=== PATIENT | female | born 1935 | race Caucasian/White ===

== ENCOUNTER 2017-09-08 07:47 | Day surgery (SDC) | payer MEDICARE, MEDICAID ==
[~2017-09-08] VITALS: Ht 167.6 cm; Wt 72.6 kg
[~2017-09-08 07:47] MED LIST: ACET325T49 PO; ASPI-983 PO; BISA10SU58 RC; BUPR150T14 PO; CARV3.122 PO; CHOL20003 PO; CLOP75TA28 PO; DIVA125C10 PO; DOCU100C37 PO; FURO20TA4 PO; GABA-488 PO; INSU100I29 SQ; LACT-157 PO; MENT71OI TP; OMEG-160 PO; POLY119P5 PO; POTA20TA8 PO; RISP0.253 PO; RISP0.5T3 PO; RIVA1PAT13 TD; SIMV40TA4 PO; TRAM50TA2 PO
[2017-09-08] MEDS ORDERED: LIDOCAINE 1% INJ 50 ML (XYLOCAINE) VIAL ONE (07:53)
[2017-09-08] MEDS ORDERED: NS IV 1000 ML 1,000 ML ONE (07:53)
[2017-09-08] MEDS ORDERED: HEParin (CATH LAB) 0 ML IV ONE (07:53)
[2017-09-08] MEDS ORDERED: NS IV 1000 ML 1,000 ML IV SCH (07:56)
[2017-09-08 08:07] VITALS: BP 134/80
[2017-09-08 08:23] LABS: HEMOGLOBIN 14.8 G/DL (11.5-16.0); MEAN PLATELET VOLUME 11.3 FL (7.4-10.4); RED BLOOD COUNT 4.92 10^6/uL (4.35-5.85); RED CELL DISTRIBUTION WIDTH 14.5 % (10.0-14.5); WHITE BLOOD COUNT 8.6 10^3/uL (4.3-11.0)
[2017-09-08 08:33] LABS: INR 1.1 (0.8-1.4); PROTHROMBIN TIME PATIENT 14.2 SEC (12.2-14.7)
--- NOTE | 2017-09-08 08:42 | Cardiac Procedure Note-CS/ASA ---
Pre-Procedure Note Pre-Op Procedure Note H&P Reviewed The H&P was reviewed, patient examined and no changes noted. Date H&P Reviewed: Sep 08, 2017 Time H&P Reviewed: 08:41 Conscious Sedation Pre-Proced Time Reviewed: 08:41 ASA Class: 3 Airway Mallampati Classification: (qagan tayagungin appropriate class) I. II. III, IV Lungs Heart ASA score ASA 1: a normal healthy patient ASA 2: a patient with a mild systemic disease (mid diabetes, controlled hypertension, obesity x ASA 3: a patient with a severe systemic disease that limits activity (angina , COPD, prior Myocardial infarction) ASA 4: a patient with an incapacitating disease that is a constant threat to life (CHF, renal failure) ASA 5: a moribund patient not expected to survive 24 hrs. (ruptured aneurysm) ASA 6: a declared brain patient whose organs are being harvested. For emergent operations, add the letter E after the classification Grade 3 Sedation Plan: Analgesia, Amnesia, Plan communicated to team members, Discussed options with patient/fam, Discussed risks with patient/fam Note The patient is an appropriate candidate to undergo the planned procedure, sedation, and anesthesia. The patient immediately re-assessed prior to indication. SUDHIR MARTINEZ MD Sep 08, 2017 08:41
[2017-09-08 08:44] LABS: ALANINE AMINOTRANSFERASE 27 U/L (0-55); ALBUMIN 3.3 GM/DL (3.2-4.5); ALKALINE PHOSPHATASE 70 U/L (40-136); BILIRUBIN,TOTAL 0.8 MG/DL (0.1-1.0); BUN/CREATININE RATIO 36; CALCIUM 9.7 MG/DL (8.5-10.1); CARBON DIOXIDE 26 MMOL/L (21-32); CHLORIDE 107 MMOL/L (98-107); CHOLESTEROL 193 MG/DL (< 200); CREATININE SERUM 0.88 MG/DL (0.60-1.30); GFR ESTIMATED > 60; GLUCOSE 145 MG/DL (70-105); HDL CHOLESTEROL 31 MG/DL (40-60); POTASSIUM 4.2 MMOL/L (3.6-5.0); SODIUM 145 MMOL/L (135-145); TRIGLYCERIDES 131 MG/DL (<150); VLDL CHOLESTEROL 26 MG/DL (5-40)
[2017-09-08] MEDS ORDERED: GENTAMICIN IR ONE ×2 (08:45)
[2017-09-08] MEDS ORDERED: ceFAZolin 1,000 MG (ANCEF) VIAL IV ONE (08:45)
[2017-09-08] MEDS ORDERED: SODIUM CHLORIDE IR ONE ×2 (08:45)
[2017-09-08] MEDS ORDERED: INSU100V6 SQ (08:55)
[2017-09-08] MEDS ORDERED: ALPR0.25 PO (08:55)
[2017-09-08] MEDS ORDERED: MENT71OI TP (08:55)
[2017-09-08] MEDS ORDERED: LORA0.5T PO ×2 (08:55→09:05)
[2017-09-08] MEDS ORDERED: POTA20PA4 PO (08:55)
[2017-09-08] MEDS ORDERED: CETI10TA20 PO (08:55)
--- NOTE | 2017-09-08 08:58 | Diagnostic Imaging Report ---
INDICATION: Pacemaker malfunction Frontal chest obtained at 0839 a.m. and compared with 01/02/16. Heart is mildly enlarged. Pacemaker device is unchanged compared to the prior study with right atrial and right ventricular leads. There is some linear atelectatic change in the right base. There is ill-defined density in the right midlung which may represent infiltrate versus nodule. Followup studies are recommended. There is no pneumothorax or gross pleural fluid. IMPRESSION: Mild cardiomegaly with unchanged pacemaker device. Linear atelectatic change in the right base. Ill-defined parenchymal density in right midlung, which may represent infiltrate versus nodule, followup chest x-rays are recommended with followup CT if this does not resolve. Dictated by: Dictated on workstation # [id number]
[2017-09-08] MEDS ORDERED: [UNRECOGNIZED DRUG - OTHER] IR ONE ×2 (09:00)
[2017-09-08] MEDS ORDERED: FURO20TA4 PO (09:05)
--- OUTSIDE RECORDS SUMMARY | 2017-09-09 18:07 | XMS REPORT | Summary of Care ---
Author Author Avinash Diaz M.D. Unknown Address [address] [place], [place] [id number] Phone Unavailable Care Team Providers Care Accounts Payable Assistant Name Role Phone Mary Tilley M.D. Unavailable Mary Tilley PP Unavailable Unavailable Unavailable Functional Status Functional Status Health Issues* Name Dates Details Functional status health issues are not documented Status: Cognitive Status Health Issues* Name Dates Details Cognitive status health issues are not documented Status: Problems Name Dates Details Sleeping Too Much (Hypersomnia) Status: Active Insomnia (780.52, G47.00) Status: Active Urinary tract infection (599.0, N39.0) Status: Active Fatigue (780.79, R53.83) Status: Active Visit for screening mammogram (V76.12, Z12.31) Status: Active Dementia (294.20, F03.90) Status: Active Cough (786.2, R05) Status: Active Weight loss (783.21, R63.4) Status: Active Abdominal pain (789.00, R10.9) Status: Active Erosive gastritis (535.40, K29.00) Status: Active Duodenal ulcer (532.90, K26.9) Status: Active Duodenitis (535.60, K29.80) Status: Active Esophageal stenosis (530.3, K22.2) Status: Active Helicobacter pylori gastritis (chronic gastritis) (535.10, B96.81) Status: Active Syncope (780.2, R55) Status: Active Chronic obstructive pulmonary disease (496, J44.9) Status: Active Hypotension (458.9, I95.9) Status: Active Blister (919.2) Status: Active Osteoporosis (733.00, M81.0) Status: Active Obstructive sleep apnea (327.23, G47.33) Status: Active Hyperparathyroidism (252.00, E21.3) Status: Active CKD (chronic kidney disease), stage III (585.3, N18.3) Status: Active Edema (782.3, R60.9) Status: Active Hypokalemia (276.8, E87.6) Status: Active Type 2 diabetes mellitus (250.00, E11.9) Status: Active Dyslipidemia (272.4, E78.5) Status: Active Chronic kidney disease, stage III (moderate) (585.3, N18.3) Status: Active Behavior problems (V40.9, F69) Status: Active Depression (311, F32.9) Status: Active Dementia of the Alzheimer's type (331.0, G30.9) Status: Active Peripheral arterial disease (443.9, I73.9) Status: Active Sick sinus syndrome (427.81, I49.5) Status: Active Hypertension (401.9, I10) Status: Active Medications Name Dates Details Clopidogrel Bisulfate 75 MG Oral Tablet Take 1 tablet daily Quantity: 90 TilleyMary harmon M.D.* Started 18-Jan-2008 ActiveLantus SoloStar 100 UNIT/ML Subcutaneous Solution Pen-injector INJECT 8 UNITS UNDER THE SKIN AT BEDTIME OR DIRECTED FOR DIABETES (NEW DOSING 04-15-15) * Quantity: 1 Refills: 0 Mary Tilley M.D.* Started 18-Jan-2008 ActiveKlor-Con M20 20 MEQ Oral Tablet Extended Release Take 1 tablet twice a day * Quantity: 180 Refills: 2 Mary Tilley M.D.* Started 16-Oct-2009 ActiveTorsemide 20 MG Oral Tablet take 2 tablets in the AM * Refills: 3 Mary Tilley M.D.* Started 30-Oct-2009 Lsojxq20 Tablet Bottle Adult Aspirin EC Low Strength 81 MG Oral Tablet Delayed Release TAKE 1 TABLET DAILY. * Refills: 0 ActiveExelon 13.3 MG/24HR Transdermal Patch [address] 1 PATCH EXTERNALLY DAILY * Quantity: 3 Refills: 2 TilleyMary M.D.* Started 13-May-2009 ActiveSimvastatin 40 MG Oral Tablet Take 1 tablet at bedtime * Quantity: 90 Refills: 3 TilleyMary M.D.* Started 27-May-2009 ActiveGabapentin 300 MG Oral Capsule TAKE 1 CAPSULE EVERY NIGHT AT BEDTIME * Quantity: 90 Refills: 2 TilleyMary M.D.* Started 03-Dec-2009 ActiveVitamin D3 2000 UNIT Oral Capsule TAKE 1 CAPSULE BY MOUTH DAILY * Quantity: 90 Refills: 3 * Started 09-Sep-2010 ActiveFish Oil 1000 MG Oral Capsule TAKE 1 CAPSULE DAILY. * Refills: 0 TilleyMary M.D.* Started 23-Oct-2011 ActiveReclast 5 MG/100ML Intravenous Solution Infuse 5mg/1000ml yearlyDx: Osteoporosis 733 * Quantity: 100 Refills: 5 TilleyMary M.D.* Started 10-Nov-2011 ActiveEscitalopram Oxalate 10 MG Oral Tablet Take 1 tablet daily * Quantity: 90 Refills: 3 TilleyMary M.D.* Started 25-Sep-2014 ActiveRisperiDONE 1 MG Oral Tablet TAKE 1 TABLET AT BEDTIME. 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 History of Coronary artery stenosis (414.00, I25.10) Status: Resolved History of deafness (V12.49, Z86.69) Status: Resolved History of dizziness (V13.89, Z87.898) Status: Resolved History of Eczema (692.9, L30.9) Status: Resolved History of Foot pain (729.5, M79.673) Status: Resolved History of fracture of ankle (V15.51, Z87.81) Status: Resolved 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, 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) Status: Resolved History of Peptic Ulcer (V12.71) Status: Resolved History of peripheral vascular disease (V12.59, Z86.79) Status: Resolved History of Renal artery stenosis (440.1, I70.1) Status: Resolved History of Restless legs syndrome (333.94, G25.81) Status: Resolved History of urinary frequency (V13.09, Z87.898) Status: Resolved History of Vision problems (V41.0, H54.7) Status: Resolved Procedures Procedure Dates Details History of Pacemaker Placement History of Carotid Thromboendarterectomy History of Cataract Surgery History of Pacemaker Placement History of Ankle Surgery History of Kidney Surgery Procedures not documented Immunization Name Dates Details Pneumo (Pneumovax) Administered on:26-Nov-2004 Td Administered on:02-Dec-2005 Influenza Administered on:09-May-2009 Influenza A (H1N1) Monoval PF Intramuscular Suspension Administered on:13-Aug-2009 Pneumo (Pneumovax) Administered on:08-Jul-2010 Fluzone Intramuscular Injectable Administered on:08-Jul-2010 Influenza Lot #: [id number] Administered on:05-Jun-2011 Zoster (Zostavax) Administered on:12-Sep-2012 Influenza Lot #: [id number] Administered on:27-Jun-2013 Prevnar 13 Intramuscular Suspension Lot #: [id number] Administered on:27-Dec-2014 Family History Unknown Family Member* Name Dates Details Family history of Dementia Comments: Family History Status: Active Family history of Gastric Cancer (V16.0) Comments: Family History Status: Active Family history of Reported Family History Of Heart Disease Comments: Family History Status: Active Family history of Type 2 Diabetes Mellitus Comments: Family History Status: Active Family history of Chronic Obstructive Pulmonary Disease Comments: Family History Status: Active Family history of Breast Cancer (V16.3) Comments: Family History Status: Active Social History Name Dates Details Weight loss (783.21, R63.4) Smoking Status* Current every day smoker Vital Signs Date Test Result Details No Known Vitals to report Results Date Description Value Details Results not documented Plan of Care Planned Observations* Name Dates Details Planned Goals not documented Goal Planned Encounters* Appointment; Provider: Jose Antonio Barnes On 14-Nov-2015 10:45 * Appointment; Provider: Avinash Diaz On 08-Jul-2015 14:30 * Appointment; Provider: Brayan Aragon On 17-Apr-2010 13:00 * Appointment; Provider: Brayan Aragon On 16-Jan-2010 11:40 * Appointment; Provider: Brayan Aragon On 22-Oct-2009 08:00 * Appointment; Provider: Bryaan Aragon On 23-Jul-2009 08:30 * Appointment; Provider: Brayan Aragon On 19-Apr-2009 08:00 * Appointment; Provider: Kevin Avalos On 13:30 Instructions * Instructions not documented Encounters Appointment; Jose Antonio Barnes Encounter Diagnosis: Problem not documented On 16-May-2015 10:30 Appointment; Mary Tilley Encounter Diagnosis: Problem not documented On 15-Apr-2015 13:00 Appointment; Avinash Diaz Encounter Diagnosis: Problem not documented On 02-Apr-2015 14:30 Appointment; Fluckarlos Avinash Encounter Diagnosis: Problem not documented On 15:30 Appointment; Avinash Diaz Encounter Diagnosis: Problem not documented On 01-Jan-2015 14:00 Appointment; Mary Tilley Encounter Diagnosis: Problem not documented On 27-Dec-2014 11:00 Appointment; Avinash Diaz Encounter Diagnosis: Problem not documented On 04-Dec-2014 12:30 Appointment; Mary Tilley Encounter Diagnosis: Problem not documented On 27-Nov-2014 14:45 Appointment; Mary Tilley Encounter Diagnosis: Problem not documented On 13-Nov-2014 15:15 Appointment; Jose Antonio Barnes Encounter Diagnosis: Problem not documented On 08-Nov-2014 10:00 Appointment; Mary Tilley Encounter Diagnosis: Problem not documented On 26-Oct-2014 14:00 Appointment; Jose Antonio Barnes Encounter Diagnosis: Problem not documented On 28-Sep-2014 14:15 Appointment; Mary Tilley Encounter Diagnosis: Problem not documented On 25-Sep-2014 14:00 Appointment; Johnna Watters Encounter Diagnosis: Problem not documented On 18-May-2014 11:30 Appointment; Jose Antonio Barnes Encounter Diagnosis: Problem not documented On 04-May-2014 11:15 Appointment; Jose Antonio Barnes Encounter Diagnosis: Problem not documented On 13-Apr-2014 13:00 Appointment; Bon Ball Encounter Diagnosis: Problem not documented On 06-Apr-2014 15:00 Appointment; Toño Luz Encounter Diagnosis: Problem not documented On 06-Apr-2014 10:00 Appointment; Mary Tilley Encounter Diagnosis: Problem not documented On 15:00 Appointment; Johnna Watters Encounter Diagnosis: Problem not documented On 21-Dec-2013 11:45 Appointment; Mary Tilley Encounter Diagnosis: Problem not documented On 01-Dec-2013 11:00 Appointment; Brodie Melendez Encounter Diagnosis: Problem not documented On 28-Aug-2013 15:45 Appointment; Johnna Watters Encounter Diagnosis: Problem not documented On 04-Aug-2013 15:00
--- OUTSIDE RECORDS SUMMARY | 2017-09-09 18:07 | XMS REPORT ---
Author Author Johnna Watters Organization Unknown Address [address], [place] [id number] Phone Care Team Providers Care Housing Project Manager Name Role Phone Jarek Hernandez PP Unavailable Unavailable Reason for Referral No Reason for Referral was given. History of Present Illness No HPI available. Problems * Paraparesis (Lower Extremities) (344.1); (Active) * Edema (782.3); (Active) * Sleeping Too Much (Hypersomnia) (Active) * Fatigue (780.79); (Active) * Insomnia (780.52); (Active) * Dyslipidemia (272.4); (Active) * Osteoporosis (733.00); (Active) * Normal Routine History And Physical Senior Citizen (65-80) (V70.0); ( Active) * Urinary Tract Infection (599.0); (Active) * Peripheral Arterial Disease (443.9); (Active) * Hypotension (458.9); (Active) * Dementia Of Alzheimer's Type (294.10); (Active) * Hypertension (401.9); (Active) * Sick Sinus Syndrome (427.81); (Active) * Type 2 Diabetes Mellitus (250.00); (Active) * Obstructive Sleep Apnea (327.23); (Active) * Dementia (294.20); (Active) * Chronic Obstructive Pulmonary Disease (496); (Active) * Chronic Kidney Disease, Stage 3 (585.3); (Active) Medication * Clopidogrel Bisulfate 75 MG Oral Tablet; take one tablet by mouth every day; Start Date: 01/18/2008 (Active) * Lantus SoloStar 100 UNIT/ML Subcutaneous Solution; FF - [id number] UNITS SUBCUTANEOUSLY AT BEDTIME.; Start Date: 01/18/2008 (Active) * Klor-Con M20 20 MEQ Oral Tablet Extended Release; Take 1 tablet twice daily; Start Date: 10/16/2009 (Active) * Torsemide 20 MG Oral Tablet; 1QD - TAKE ONE TABLET BY MOUTH EVERY DAY; Start Date: 10/30/2009 (Active) * Adult Aspirin EC Low Strength 81 MG Oral Tablet Delayed Release; TAKE 1 TABLET DAILY. (Active) * Sertraline HCl 50 MG Oral Tablet; Take one tab daily; Start Date: 10/30/2009 ( Active) * Exelon 13.3 MG/24HR Transdermal Patch 24 Hour; PLACE 1 PATCH Daily; Start Date : 05/13/2009 (Active) * Simvastatin 40 MG Oral Tablet; TAKE ONE TABLET BY MOUTH AT BEDTIME; Start Date : 05/27/2009 (Active) * Syringes; insulin syringes 31 gauge8 units with meals Dx250.; Start Date: ; End Date: (Active) * Gabapentin 300 MG Oral Capsule; TAKE 1 CAPSULE Bedtime; Start Date: 2009 (Active) * Vitamin D3 2000 UNIT Oral Capsule; TAKE 2 CAPSULE BY MOUTH DAILY; Start Date: 09/09/2010 (Active) * Mixture; 50\50 Eucerin\HC 1%-Apply TID 50 gm; Start Date: 08/04/2011; End Date: (Active) * Halobetasol Propionate 0.05 % External Cream; APPLY THIN LAYER TO HANDS TWICE DAILY UNTIL CLEAR AND THEN NEEDED; Start Date: 09/07/2011; End Date: 1899 (Active) * Fish Oil 1000 MG Oral Capsule; TAKE 1 CAPSULE DAILY.; Start Date: 10/23/2011 ( Active) * Reclast 5 MG/100ML Intravenous Solution; Infuse 5mg/1000ml yearlyDx: Osteoporosis 733; Start Date: 11/10/2011 (Active) * Nystatin-Triamcinolone 135282-6.1 UNIT/GM-% External Cream; APPLY SPARINGLY TO AFFECTED AREA(S) 3 TIMES A DAY; Start Date: 02/12/2012; End Date: (Active) * Budesonide 0.5 MG/2ML Inhalation Suspension; USE 1 UNIT DOSE VIA NEBULIZER TWO TIMES A DAY; Start Date: 11/25/2012; End Date: (Active) * Hydrocodone-Acetaminophen 5-500 MG Oral Tablet; TAKE 1 TABLET EVERY 6 HOURS NEEDED FOR PAIN.; Start Date: 12/19/2012 (Active) * Losartan Potassium 50 MG Oral Tablet; Take one tablet by mouth daily; Start Date: 02/13/2013 (Active) * Losartan Potassium 50 MG Oral Tablet; Take one tablet by mouth daily; Start Date: 02/13/2013; End Date: (Active) * Namenda Titration Sukhjinder 5 (28)-10 (21) MG Oral Tablet; TAKE DIRECTED.; Start Date: 02/13/2013; End Date: (Active) * Namenda XR 28 MG Oral Capsule Extended Release 24 Hour; TAKE 1 CAPSULE Daily; Start Date: 02/13/2013; End Date: (Active) Allergies and Adverse Reactions * Neosporin OINT (Active) * Antihistamines, Diphenhydramine-type (Active) Past Medical History * History of Peptic Ulcer (V12.71); (Resolved) * History of Allergic Rhinitis (477.9); (Resolved) * History of Restless Legs Syndrome (333.94); (Resolved) * 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); (Resolved) * History of Coronary Artery Stenosis (414.00); (Resolved) * History of Prior Myocardial Infarction Of The Inferior Wall (412); ( Resolved) * History of Carotid Artery Stenosis (433.10); (Resolved) * History of Peripheral Vascular Disease (443.9); (Resolved) * History of Renal Artery Stenosis (440.1); (Resolved) * History of Aneurysm Of The Abdominal Aorta (441.4); (Resolved) * History of Fracture Of The Ankle (824.8); (Resolved) * History of Pacemaker Placement (V53.31); (Resolved) * History of Fainting (Syncope) (780.2); (Resolved) * History of Urinary Frequency (788.41); (Resolved) * History of Vision Problems (V41.0); (Resolved) * History of Eczema (692.9); (Resolved) * History of Dizziness (780.4); (Resolved) * History of Hearing Loss (389.9); (Resolved) * History of Foot Pain (Soft Tissue) (729.5); (Resolved) Procedures Procedure Procedure Date Date Completed Status Carotid Thromboendarterectomy - - Active Cataract Surgery - - Active Pacemaker Placement - - Active Ankle Surgery - - Active Kidney Surgery - - Active Immunization * Td - Administered on: 12/02/2005 * Pneumo (Pneumovax) - Administered on: 11/26/2004 * Influenza - Administered on: 05/09/2009 * Influenza A (H1N1) Monoval PF Intramuscular Suspension - Administered on: * Pneumo (Pneumovax) - Administered on: 07/08/2010 * Fluzone Intramuscular Injectable - Administered on: 07/08/2010 * Influenza (Lot #: [id number]) - Administered on: 06/05/2011 * Zoster (Zostavax); #Zostavax 80097 UNT/0 - Administered on: 09/12/2012 Family History * Family history of Dementia (Active) * Family history of Gastric Cancer (V16.0); (Active) * Family history of Reported Family History Of Heart Disease (Active) * Family history of Type 2 Diabetes Mellitus (Active) * Family history of Chronic Obstructive Pulmonary Disease (Active) * Family history of Breast Cancer (V16.3); (Active) Social History * Retired From Work (Active) * Racial Background (___ %) (Active) * No History of Alcohol Use (Active) * No History of Drug Use (Active) * Stopped Drinking Alcohol (Active) * History of Current Smoker Comments: 1/2 ppd (305.1); (Active) * Current Every Day Smoker (305.1); (Active) * Marital History - (Active) * Caffeine Use (Active) * Hoahaoism Affiliation [employer] ([employer]) (Active) Treatment Plan * SPECIMEN STATUS: 6732 12/22/2007 Routine * Urine Culture PRN 8000 04/20/2008 Routine * Urinalysis, Reflex to Microscopic or Culture PRN 8005 04/20/2008 Routine * XM CAD (SCREENING) 07/05/2008 Routine * XC OPTIRAY 320 125ML 09/13/2008 Routine * HOLD TUBE 9421 01/28/2009 Routine * XM CAD (SCREENING) 08/09/2009 Routine * HOLD TUBE 9421 08/06/2010 Routine * Urine Culture PRN 8000 10/23/2011 Routine * XM CAD (SCREENING) 11/06/2011 Routine Advance Directives * No Advance Directives available. Encounters * Appointment 05/22/2013 * RTNPT , Provider: Jarek Hernandez, Status: Pen , Time: 2:15 PM 2012 * SLEPRTN , Provider: Zhane Orozco, Status: Pen , Time: 2:15 PM 2012 * [facility] , Provider: Duong Oropeza, Status: Pen , Time: 3:00 PM 01/2013 * RTNPT , Provider: Al Calloway, Status: Pen , Time: 1:15 PM 2012
--- OUTSIDE RECORDS SUMMARY | 2017-09-09 18:08 | XMS REPORT | Summary of Care ---
Author Author Avinash Diaz M.D. Unknown Address [address] [place], [place] [id number] Phone Unavailable Care Team Providers Care Lactation Nurse Name Role Phone Mary Tilley M.D. 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, E21.3) Status: Active Edema (782.3, R60.9) Status: Active [...] Status: Active Hypertension (401.9, I10) Status: Active CKD (chronic kidney disease), stage III (585.3, N18.3) Status: Active Generalized edema (782.3, R60.1) Status: Active Essential hypertension (401.9, I10) Status: Active Medications Name Dates Details Clopidogrel Bisulfate 75 MG Oral Tablet Take 1 tablet daily Quantity: 90 Mary Tilley M.D.* Started 18-Jan-2008 ActiveLantus SoloStar 100 UNIT/ML [...] Refills: 3 Mary Tilley M.D.* Started 30-Oct-2009 [id number] Tablet Bottle Adult Aspirin EC Low Strength 81 MG Oral Tablet Delayed Release TAKE 1 TABLET DAILY. * Refills: 0 ActiveExelon 13.3 MG/24HR Transdermal Patch [address] 1 PATCH EXTERNALLY DAILY * Quantity: 3 Refills: 2 Mary Tilley M.D.* Started 13-May-2009 ActiveSimvastatin 40 MG Oral [...] Intramuscular Injectable Administered on:08-Jul-2010 Influenza Lot #: [id number] Administered on:05-Jun-2011 Zoster (Zostavax) Administered on:12-Sep-2012 Influenza Lot #: [id number] Administered on:27-Jun-2013 Prevnar 13 Intramuscular Suspension Lot #: [id number] Administered on:27-Dec-2014 Family History Unknown Family Member* [...] smoker Vital Signs Date Test Result Details 08-Jul-2015 14:30 BP Systolic 120 mm[Hg] Status: BP Diastolic 69 mm[Hg] Status: Heart Rate 66 /min Status: Results Date Description Value Details 08-Jul-2015 14:08 CBC w/ Auto Diff 7150 WBC 7.5 K/uL (Better) Range: 4.5-11.0 RBC 4.72 mil/uL (Better) Range: 3.60-5.00 HGB 14.0 g/dL (Better) Range: 12.0-16.0 HCT 43.9 % (Better) Range: 36.0-48.0 MCV 93.0 fL (Better) Range: 80.0-99.0 MCH 29.7 pg (Better) Range: 27.3-32.5 MCHC 32.0 % (Better) Range: 32.0-36.0 RDW 13.1 % (Better) Range: 11.6-14.8 PLATELETS 149 K/uL (Below low threshold) Range: 150-400 MPV 8.4 fL (Better) Range: 6.0-11.0 %NEUTRO 65.6 % (Better) Range: 37.0-80.0 %LYMPHS 24.2 % (Better) Range: 13.0-50.0 %MONO 4.9 % (Better) Range: 0.0-12.0 %EOS 2.2 % (Better) Range: 0.0-7.0 %BASO 0.5 % (Better) Range: 0.0-2.5 %VIRGIE 2.8 % (Better) Range: 0.0-5.0 NEUTRO 4.9 K/uL (Better) Range: 2.0-6.9 LYMPHS 1.8 K/uL (Better) Range: 0.6-3.4 MONOS 0.4 K/uL (Better) Range: 0.0-0.9 EOS 0.2 K/uL (Better) Range: 0.0-0.7 BASO 0.0 K/uL (Better) Range: 0.0-0.2 14:22 MAGNESIUM 1260 MAGNESIUM 2.0 mg/dL (Better) Range: 1.8-2.4 14:23 RENAL PROFILE 1240 SODIUM 143 mmol/L (Better) Range: 133-144 POTASSIUM 4.2 mmol/L (Better) Range: 3.5-5.1 CHLORIDE 103 mmol/L (Better) Range: 98-110 CARBON DIOXIDE 29.4 mmol/L (Better) Range: 23.0-33.0 ANION GAP 11 mmol/L (Better) Range: 6-16 BUN 21 mg/dL (Above high threshold) Range: 7-18 CREATININE, SERUM 1.12 mg/dL (Above high threshold) Range: 0.55-1.02 Comments: Please note new reference ranges effective 2015.----- EST GFR, 57 ml/min (Below low threshold) Range: >60 EST GFR, NON-AFR KENYAN 47 ml/min (Below low threshold) Range: >60 Comments: EST GFR is reported in ml/min per 1.73 m2 of body surface area. For -Faroese, please multiple result by 1.2.----- BUN:CREATININE RATIO 19 (Better) GLUCOSE 75 mg/dL (Better) Range: 70-100 ALBUMIN 3.4 g/dL (Better) Range: 3.4-5.0 PHOSPHORUS 3.0 mg/dL (Better) Range: 2.6-4.7 Comments: Please note new reference ranges effective 2015.----- CALCIUM 9.5 mg/dL (Better) Range: 8.5-10.1 Plan of Care Planned Observations* Name Dates Details Planned Goals not documented Goal Planned Encounters* Appointment; Provider: Jose Antonio Barnes On 14-Nov-2015 10:45 * Appointment; Provider: Avinash Diaz On 07-Oct-2015 14:15 * Appointment; Provider: Brayan Aragon On 17-Apr-2010 13:00 * Appointment; Provider: Brayan Aragon On 16-Jan-2010 11:40 * Appointment; Provider: Brayan Aragon On 22-Oct-2009 08:00 * Appointment; Provider: Brayan Aragon On 23-Jul-2009 08:30 * Appointment; Provider: Brayan Aragon On 19-Apr-2009 08:00 * Appointment; Provider: Kevin Avalos On 13:30 Instructions * Instructions not documented Encounters Appointment; Avinash Diaz Encounter Diagnosis: Problem not documented On 08-Jul-2015 14:30 Appointment; Jose Antonio Barnes Encounter Diagnosis: Problem not documented On 16-May-2015 10:30 Appointment; Mary Tilley Encounter Diagnosis: Problem not documented On 15-Apr-2015 13:00 Appointment; Avinash Diaz Encounter Diagnosis: Problem not documented On 02-Apr-2015 14:30 Appointment; Avinash Diaz Encounter Diagnosis: Problem not documented On 15:30 [...] Problem not documented On 06-Apr-2014 15:00 Appointment; Luz Lundberg Encounter Diagnosis: Problem not documented On 06-Apr-2014 [...]
--- OUTSIDE RECORDS SUMMARY | 2017-09-09 18:08 | XMS REPORT | Summary of Care ---
Author Author Mary Tilley M.D. Unknown Address [address], [place] [id number] Phone Unavailable Care Team Providers Care Insurance Agency Sales Manager Name Role Phone Mary Tilley M.D. Unavailable Unavailable Mary Tilley PP Unavailable Unavailable Unavailable [...] Status: Active Fatigue (780.79, R53.83) Status: Active Edema (782.3, R60.9) Status: Active Visit for screening mammogram (V76.12, [...] obstructive pulmonary disease (496, J44.9) Status: Active Depression (311, F32.9) Status: Active Hypotension (458.9, I95.9) Status: Active Blister (919.2) Status: Active Sick sinus syndrome (427.81, I49.5) Status: Active Type 2 diabetes mellitus (250.00, E11.9) Status: Active Hypertension (401.9, I10) Status: Active Dyslipidemia (272.4, E78.5) Status: Active Dementia of the Alzheimer's type (331.0, G30.9) Status: Active Chronic kidney disease, stage III (moderate) (585.3, N18.3) Status: Active Behavior problems (V40.9, F69) Status: Active Osteoporosis (733.00, M81.0) Status: Active Obstructive sleep apnea (327.23, G47.33) Status: Active Peripheral arterial disease (443.9, I73.9) Status: Active Medications Name Dates Details Clopidogrel Bisulfate 75 MG Oral Tablet take one tablet by mouth every day Quantity: 90 TilleyMary M.D.* Started 18-Jan-2008 ActiveLantus SoloStar 100 UNIT/ML Subcutaneous Solution Pen-injector Inject 12 U Subcutaneously at bedtime or as directed for diabetes * Quantity: 1 Refills: 3 TilleyMary M.D.* Started 18-Jan-2008 Active3 ML Pen (5 Pens) Torsemide 20 MG Oral Tablet 1QD - TAKE ONE TABLET BY MOUTH EVERY DAY * Quantity: 90 Refills: 3 TilleyMary M.D.* Started 30-Oct-2009 ActiveAdult Aspirin EC Low Strength 81 MG Oral Tablet Delayed Release TAKE 1 TABLET DAILY. * Refills: 0 ActiveExelon 13.3 MG/24HR Transdermal Patch [address] 1 PATCH Daily * Quantity: 3 Refills: 3 TilleyMary harmon M.D.* Started 13-May-2009 ActiveSimvastatin 40 MG Oral Tablet TAKE ONE TABLET BY MOUTH AT BEDTIME * Quantity: 90 Refills: 3 TilleyMary M.D.* Started 27-May-2009 ActiveGabapentin 300 MG Oral Capsule TAKE 1 CAPSULE BY MOUTH EVERY NIGHT AT BEDTIME * Quantity: 90 Refills: 3 TilleyMary M.D.* Started 03-Dec-2009 ActiveVitamin D3 2000 UNIT Oral Capsule TAKE 1 CAPSULE BY MOUTH DAILY * Quantity: 90 Refills: 3 * Started 09-Sep-2010 ActiveFish Oil 1000 MG Oral Capsule TAKE 1 CAPSULE DAILY. * Refills: 0 TilleyMary M.D.* Started 23-Oct-2011 ActiveReclast 5 MG/100ML Intravenous Solution Infuse 5mg/1000ml yearlyDx: Osteoporosis 733 * Quantity: 1 Refills: 5 TilleyMary M.D.* Started 10-Nov-2011 [id number] ML Plas Cont Potassium Chloride Krista ER 20 MEQ Oral Tablet Extended Release Take 1 tablet twice daily * Quantity: 180 Refills: 3 TilleyMary M.D.* Started 21-Nov-2013 ActiveEscitalopram Oxalate 10 MG Oral Tablet Take 1 tablet daily * Quantity: 90 Refills: 0 TilleyMary M.D.* Started 25-Sep-2014 ActiveRisperiDONE 1 MG [...] Status: Resolved History of urinary frequency (V13.09, Z87.448) Status: Resolved History of Vision problems (V41.0, H54.2) Status: Resolved Procedures Procedure Dates Details History of Pacemaker Placement History of Carotid Thromboendarterectomy History of Cataract Surgery History of Pacemaker Placement History of Ankle Surgery History of Kidney Surgery RENAL PROFILE 1240 Ordered:04-Dec-2014 Immunization Name Dates Details Pneumo (Pneumovax) Administered on:26-Nov-2004 Td Administered on:02-Dec-2005 Influenza Administered on:09-May-2009 Influenza A (H1N1) Monoval PF Intramuscular Suspension Administered on:13-Aug-2009 Pneumo (Pneumovax) Administered on:08-Jul-2010 Fluzone Intramuscular Injectable Administered on:08-Jul-2010 Influenza Lot #: [id number] Administered on:05-Jun-2011 Zoster (Zostavax) Administered on:12-Sep-2012 Influenza Lot #: [id number] Administered on:27-Jun-2013 Prevnar 13 Intramuscular Suspension Lot #: [id number] Administered on:27-Dec-2014 Family History Unknown Family Member* [...] smoker Vital Signs Date Test Result Details 27-Dec-2014 11:29 BP Systolic 120 mm[Hg] Status: BP Diastolic 60 mm[Hg] Status: Heart Rate 64 /min Status: Weight 159 lb Status: Height 64 in Status: Body Mass Index Calculated 27.29 kg/m2 Status: Body Surface Area Calculated 1.77 m2 Status: 04-Dec-2014 12:26 BP Systolic 110 mm[Hg] Status: BP Diastolic 58 mm[Hg] Status: Heart Rate 74 /min Status: Weight 166 lb Status: Body Mass Index Calculated 27.62 kg/m2 Status: Body Surface Area Calculated 1.83 m2 Status: 27-Nov-2014 15:15 BP Systolic 126 mm[Hg] Status: BP Diastolic 68 mm[Hg] Status: Heart Rate 64 /min Status: Respiration Rate 18 /min Status: Temperature 98.7 f Status: Weight 164.2 lb Status: Body Mass Index Calculated 27.32 kg/m2 Status: Body Surface Area Calculated 1.82 m2 Status: Results Date Description Value Details 04-Dec-2014 10:41 CBC w/ Auto Diff 7150 WBC 6.8 K/uL (Better) Range: 4.5-11.0 RBC 4.62 mil/uL (Better) Range: 3.60-5.00 HGB 13.6 g/dL (Better) Range: 12.0-16.0 HCT 42.4 % (Better) Range: 36.0-48.0 MCV 91.7 fL (Better) Range: 80.0-99.0 MCH 29.5 pg (Better) Range: 27.3-32.5 MCHC 32.2 % (Better) Range: 32.0-36.0 RDW 13.5 % (Better) Range: 11.6-14.8 PLATELETS 203 K/uL (Better) Range: 150-400 MPV 7.4 fL (Better) Range: 6.0-11.0 %NEUTRO 67.7 % (Better) Range: 37.0-80.0 %LYMPHS 22.9 % (Better) Range: 13.0-50.0 %MONO 4.6 % (Better) Range: 0.0-12.0 %EOS 2.2 % (Better) Range: 0.0-7.0 %BASO 0.3 % (Better) Range: 0.0-2.5 %VIRGIE 2.2 % (Better) Range: 0.0-5.0 NEUTRO 4.6 K/uL (Better) Range: 2.0-6.9 LYMPHS 1.6 K/uL (Better) Range: 0.6-3.4 MONOS 0.3 K/uL (Better) Range: 0.0-0.9 EOS 0.2 K/uL (Better) Range: 0.0-0.7 BASO 0.0 K/uL (Better) Range: 0.0-0.2 11:19 Parathyroid Hormone Intact 3101 Intact Parathyroid Hormone 211 pg/mL (Above high threshold) Range: 14-72 11:20 RENAL PROFILE 1240 SODIUM 139 mmol/L (Better) Range: 133-144 POTASSIUM 3.7 mmol/L (Better) Range: 3.5-5.1 CHLORIDE 102 mmol/L (Better) Range: 98-110 CARBON DIOXIDE 32.0 mmol/L (Better) Range: 23.0-33.0 ANION GAP 5 mmol/L (Below low threshold) Range: 6-16 BUN 16 mg/dL (Better) Range: 7-18 CREATININE, SERUM 1.04 mg/dL (Better) Range: 0.43-1.13 EST GFR, >60 ml/min (Better) Range: >60 EST GFR, NON-AFR [place] 51 ml/min (Below low threshold) Range: >60 Comments: EST GFR is reported in ml/min per 1.73 m2 of body surface area. For -South African, please multiple result by 1.2.----- BUN:CREATININE RATIO 15 (Better) GLUCOSE 88 mg/dL (Better) Range: 70-100 ALBUMIN 3.1 g/dL (Below low threshold) Range: 3.4-5.0 PHOSPHORUS 2.7 mg/dL (Better) Range: 2.5-4.9 CALCIUM 8.7 mg/dL (Better) Range: 8.5-10.1 13:23 Urinalysis, Reflex to Microscopic or Culture PRN 8005 pH 6.0 (Better) Range: 5.0-7.5 SP GRAVITY 1.010 (Better) Range: 1.010-1.030 APPEARANCE CLEAR (Better) Range: Clear COLOR YELLOW (Better) Range: Straw-Yellow PROTEIN NEGATIVE mg/dL (Better) Range: Negative-Trace GLUCOSE NEGATIVE mg/dL (Better) Range: Negative KETONE NEGATIVE mg/dL (Better) Range: Negative BILIRUB NEGATIVE (Better) Range: Negative BLOOD NEGATIVE (Better) Range: Negative UROBIL 1.0 EU/dL (Better) Range: 0.2-1.0 NITRITE NEGATIVE (Better) Range: Negative LEUK MODERATE (Abnormal) Range: Negative 13:23 Urine Microscopic UMIC WBC 6-10 /HPF (Abnormal) Range: 0-5 Comments: Specimen referred to Microbiology for Culture----- HYAL CAST 0-2 /LPF (Better) Range: 0-2 MUCUS 1+ /LPF (Better) Range: Negative-2+ BACTERIA 2+ /HPF (Abnormal) Range: Negative-Trace EPITH 0-2 /HPF (Better) Range: 0-10 13:32 C REACTIVE PROTEIN, CRP 2030 C REACTIVE PROTEIN 0.2 mg/dL (Better) Range: 0.0-0.9 13:32 URINE PROT CREAT RATIO 1193 Comments: Unable to caclulate ratio - Urine protein below assay range. PROTEIN, URINE <6.0 mg/dL (Better) Range: 0.0-11.9 URINE CREATININE 47.7 mg/dL (Better) Range: 30.0-125.0 13:32 CREATINE KINASE 1300 CREATINE KINASE 31 U/L (Better) Range: 26-192 13:45 Parathyroid Hormone Intact 3101 Intact Parathyroid Hormone 242 pg/mL (Above high threshold) Range: 14-72 14:19 RHEUMATOID FACTOR, RA, Serum 2014 RHEUMATOID FACTOR Negative (Better) Range: Negative 05-Dec-2014 08:03 URINE CULTURE 5010 *URINE CULTURE Microbiology results (Better) Comments: URINE SOURCE: Clean CatchCOLONY COUNT>100,000 cfu/ml. of 3 or more colony types of gram positive bacteria. (SUGGESTIVE OF CONTAMINATION)----- 16:54 Immunofixation, Serum [id number] Comments: TESTING PERFORMED AT: [[place]] [facility], [address], PHONE: [phone], WARP TENSION TESTER: EDYTA CHAIREZ MD IMMUNOFIXATION RESULT, SERUM COMMENT (Better) Comments: AN APPARENT NORMAL IMMUNOFIXATION PATTERN.----- IMMUNOGLOBULIN G, QN, SERUM 632 MG/DL (Below low threshold) Range: 700- 1600 IMMUNOGLOBULIN A, QN, SERUM 133 MG/DL (Better) Range: 91-414 IMMUNOGLOBULIN M, QN, SERUM 34 MG/DL (Below low threshold) Range: 40-230 16:54 Protein Elec + Interp, Serum [id number] Comments: TESTING PERFORMED AT : [[facility]] [facility], [address] [place] [address], [place], [address], PHONE: [phone], WARP TENSION TESTER: EDYTA CHAIREZ MD PROTEIN, TOTAL, SERUM 5.4 G/DL (Below low threshold) Range: 6.0-8.5 ALBUMIN 3.1 G/DL (Below low threshold) Range: 3.2-5.6 PVAHI-3-YNCMQPAZ 0.3 G/DL (Better) Range: 0.1-0.4 SBYTZ-6-SFANSVTC 0.7 G/DL (Better) Range: 0.4-1.2 BETA GLOBULIN 0.8 G/DL (Better) Range: 0.6-1.3 GAMMA GLOBULIN 0.6 G/DL (Better) Range: 0.5-1.6 M-SPIKE NOT OBSERVED G/DL (Better) Range: NOT OBSERVED GLOBULIN, TOTAL 2.3 G/DL (Better) Range: 2.0-4.5 A/G RATIO 1.3 (Better) Range: 0.7-2.0 PLEASE NOTE: COMMENT (Better) Comments: PROTEIN ELECTROPHORESIS SCAN WILL FOLLOW VIA COMPUTER,MAIL, OR MOLD YARD SUPERVISOR DELIVERY.----- P E INTERPRETATION, S COMMENT (Better) Comments: THE SPE PATTERN REFLECTS HYPOALBUMINEMIA. EVIDENCE OFMONOCLONAL PROTEIN IS NOT APPARENT.----- 16:54 Immunofixation, Urine [id number] Comments: TESTING PERFORMED AT: [DA] [facility], [address] [place] [address], [place], [address], PHONE: , WARP TENSION TESTER: EDYTA CHAIREZ MD GISEL INTERPRETATION:U COMMENT (Better) Comments: AN APPARENT NORMAL IMMUNOFIXATION PATTERN.----- 07-Dec-2014 12:16 ANALYZER PROFILE 3031 ANTINUCLEAR ANTIBODIES 31 AU/mL (Better) Range: 0-120 Comments: REFERENCE VALUE INTERPRETATION 0-99 U/mL - NEGATIVE 100 - 120 U/mL - EQUIVOCAL >120 U/mL - POSITIVE--- -- SJOGREN'S SSA AB 6 AU/mL (Better) Range: 0-120 SJOGREN'S SSB AB 6 AU/mL (Better) Range: 0-120 VILLAR AB 3 AU/mL (Better) Range: 0-120 SITE LEASING AGENT AB 10 AU/mL (Better) Range: 0-120 ANTI DNA 5 IU/mL (Better) Range: 0-120 CENTROMERE AB 4 AU/mL (Better) Range: 0-120 HISTONE AB 26 AU/mL (Better) Range: 0-120 10-Dec-2014 09:28 ULTRASOUND RENAL SONO Comments: Exam Date: 08 :59Dictation Date: 09:28 XS RENAL SONO (Better) 25-Dec-2014 13:07 CBC w/ Auto Diff 7150 Comments: Fastin hours WBC 7.5 K/uL (Better) Range: 4.5-11.0 RBC 4.82 mil/uL (Better) Range: 3.60-5.00 HGB 14.6 g/dL (Better) Range: 12.0-16.0 HCT 42.2 % (Better) Range: 36.0-48.0 MCV 87.6 fL (Better) Range: 80.0-99.0 MCH 30.2 pg (Better) Range: 27.3-32.5 MCHC 34.5 % (Better) Range: 32.0-36.0 RDW 13.1 % (Better) Range: 11.6-14.8 PLATELETS 167 K/uL (Better) Range: 150-400 MPV 8.3 fL (Better) Range: 6.0-11.0 %NEUTRO 69.2 % (Better) Range: 37.0-80.0 %LYMPHS 21.8 % (Better) Range: 13.0-50.0 %MONO 4.8 % (Better) Range: 0.0-12.0 %EOS 1.8 % (Better) Range: 0.0-7.0 %BASO 0.8 % (Better) Range: 0.0-2.5 %VIRGIE 1.6 % (Better) Range: 0.0-5.0 NEUTRO 5.2 K/uL (Better) Range: 2.0-6.9 LYMPHS 1.6 K/uL (Better) Range: 0.6-3.4 MONOS 0.4 K/uL (Better) Range: 0.0-0.9 EOS 0.1 K/uL (Better) Range: 0.0-0.7 BASO 0.1 K/uL (Better) Range: 0.0-0.2 13:08 Urinalysis, Reflex to Microscopic or Culture PRN 8005 Comments: Fastin hours pH 6.5 (Better) Range: 5.0-7.5 SP GRAVITY <=1.005 (Abnormal) Range: 1.010-1.030 APPEARANCE CLEAR (Better) Range: Clear COLOR YELLOW (Better) Range: Straw-Yellow PROTEIN NEGATIVE mg/dL (Better) Range: Negative-Trace GLUCOSE NEGATIVE mg/dL (Better) Range: Negative KETONE NEGATIVE mg/dL (Better) Range: Negative BILIRUB NEGATIVE (Better) Range: Negative BLOOD NEGATIVE (Better) Range: Negative UROBIL 0.2 EU/dL (Better) Range: 0.2-1.0 NITRITE NEGATIVE (Better) Range: Negative LEUK SMALL (Abnormal) Range: Negative 13:08 Urine Microscopic UMIC Comments: Fastin hours WBC 3-5 /HPF (Better) Range: 0-5 BACTERIA Trace /HPF (Better) Range: Negative-Trace EPITH 0-2 /HPF (Better) Range: 0-10 13:14 PHOSPHORUS 1145 Comments: Items were attached to this order: PHOS PHOSPHORUS 3.1 mg/dL (Better) Range: 2.5-4.9 13:17 Comprehensive Metabolic Panel 1212 Comments: Fastin hours SODIUM 137 mmol/L (Better) Range: 133-144 POTASSIUM 3.8 mmol/L (Better) Range: 3.5-5.1 CHLORIDE 100 mmol/L (Better) Range: 98-110 CARBON DIOXIDE 31.5 mmol/L (Better) Range: 23.0-33.0 ANION GAP 6 mmol/L (Better) Range: 6-16 BUN 23 mg/dL (Above high threshold) Range: 7-18 CREATININE, SERUM 1.19 mg/dL (Above high threshold) Range: 0.43-1.13 BUN:CREATININE RATIO 19 (Better) EST GFR, 53 ml/min (Below low threshold) Range: >60 EST GFR, NON-AFR [place] 44 ml/min (Below low threshold) Range: >60 Comments: EST GFR is reported in ml/min per 1.73 m2 of body surface area. For -South African, please multiple result by 1.2.----- GLUCOSE 91 mg/dL (Better) Range: 70-100 ALK PHOSPHATASE 56 U/L (Better) Range: 46-116 TOTAL BILIRUBIN 0.60 mg/dL (Better) Range: 0.20-1.00 AST 16 U/L (Better) Range: 8-35 ALT 17 U/L (Better) Range: 14-59 Comments: Please note new reference ranges. Effective 11/08/2014.----- ALBUMIN 3.3 g/dL (Below low threshold) Range: 3.4-5.0 TOTAL PROTEIN 6.3 g/dL (Below low threshold) Range: 6.4-8.2 A/G RATIO 1.1 units (Better) Range: 1.0-1.8 CALCIUM 9.3 mg/dL (Better) Range: 8.5-10.1 13:17 LIPID PROFILE 1184 Comments: Fastin hours CHOLESTEROL 126 mg/dL (Better) Range: <200 TRIGLYCERIDES 77 mg/dL (Better) Range: 30-200 HDL Cholesterol 43 mg/dL (Better) Range: >39 NON HDL CHOLESTEROL 83 (Better) CARDIAC RSK FACTOR 2.9 units (Below low threshold) Range: 4.4-5.0 LDL - CALCULATED 68 mg/dL (Better) Range: 0-130 13:21 ALBUMIN CREAT PANEL 1108 Comments: Fastin hours MICROALBUMIN, URINE 4.4 mg/L (Better) Range: <20.1 URINE CREATININE 25.2 mg/dL (Below low threshold) Range: 30.0-125.0 URINE ALBUMIN:CREAT RATIO 17.5 ug/mg (Better) Range: 0.0-30.0 13:44 THYROID STIM. HORMONE 3602 Comments: Fastin hours THYROID STIM. HORMONE 1.739 uIU/mL (Better) Range: 0.550-4.780 Comments: \[id number]\No established reference ranges for infants and children < 2 years of ageNo established reference ranges for infants and children <2 years of age----- 14:58 HEMOGLOBIN A1C 3507 Comments: Fastin hours Hemoglobin A1C 5.8 % (Better) ESTIMATED AVG. GLUCOSE 120 (Better) Plan of Care Planned Observations* Name Dates Details Planned Goals not documented Goal Planned Encounters* Appointment; Provider: Jose Antonio Barnes On 16-May-2015 10:30 * Appointment; Provider: Mary Tilley On 15-Apr-2015 13:00 * Appointment; Provider: Avinash Diaz On 01-Jan-2015 14:00 * Appointment; Provider: Brayan Aragno On 17-Apr-2010 13:00 * Appointment; Provider: Brayan Aragon On 16-Jan-2010 11:40 * Appointment; Provider: Brayan Aragon On 22-Oct-2009 08:00 * Appointment; Provider: Brayan Aragon On 23-Jul-2009 08:30 * Appointment; Provider: Brayan Aragon On 19-Apr-2009 08:00 * Appointment; Provider: Kevin Avalos On 13:30 Instructions * Instructions not documented Encounters Appointment; Mary Tilley Encounter Diagnosis: Problem not [...] Diagnosis: Problem not documented On 04-Aug-2013 15:00 Appointment; Mary Tilley Encounter Diagnosis: Problem not documented On 27-Jun-2013 14:15 Appointment; Johnna Watters Encounter Diagnosis: Problem not documented On 22-May-2013 14:00 Appointment; Mary Tilley Encounter Diagnosis: Problem not documented On 15:30 Appointment; Sylvester Stoll Encounter Diagnosis: Problem not documented On 14:30 Appointment; Brodie Melendez Encounter Diagnosis: Problem not documented On 13:15 Appointment; Mary Tilley Encounter Diagnosis: Problem not documented On 02-Jan-2013 13:30
--- OUTSIDE RECORDS SUMMARY | 2017-09-09 18:09 | XMS REPORT | Summary of Care ---
Author Author Mary Tilley M.D. Unknown Address [address] [place], [place] [id number] Phone Unavailable Care Team Providers Care Automation Controls Specialist Name Role Phone Mary Tilley M.D. Unavailable [...] Status: Active Dyslipidemia (272.4, E78.5) Status: Active Osteoporosis (733.00, M81.0) Status: Active Obstructive sleep apnea (327.23, G47.33) Status: Active Peripheral arterial disease (443.9, I73.9) Status: Active Dementia of the Alzheimer's type (331.0, G30.9) Status: Active Behavior problems (V40.9, F69) Status: Active Chronic kidney disease, stage III (moderate) (585.3, N18.3) Status: Active Medications Name Dates Details Clopidogrel [...] 1 Refills: 5 TilleyMary M.D.* Started 10-Nov-2011 [id number] ML Plas Cont Potassium Chloride Krista ER [...] of Kidney Surgery RENAL PROFILE 1240 Ordered:04-Dec-2014 HEMOGLOBIN A1C 3507 Ordered:27-Dec-2014 Immunization Name Dates Details Pneumo (Pneumovax) Administered on:26-Nov-2004 Td Administered on:02-Dec-2005 Influenza Administered on:09-May-2009 Influenza A (H1N1) Monoval PF Intramuscular Suspension Administered on:13-Aug-2009 Pneumo (Pneumovax) Administered on:08-Jul-2010 Fluzone Intramuscular Injectable Administered on:08-Jul-2010 Influenza Lot #: [id number] Administered on:05-Jun-2011 Zoster (Zostavax) Administered on:12-Sep-2012 Influenza Lot #: [id number] Administered on:27-Jun-2013 Prevnar 13 Intramuscular Suspension Lot #: [id number] Administered on:27-Dec-2014 Family History Unknown Family Member* [...] ml/min (Better) Range: >60 EST GFR, NON-AFR CHINESE 51 ml/min (Below low threshold) Range: >60 Comments: EST GFR is reported in ml/min per 1.73 m2 of body surface area. For -[place], please multiple result by 1.2.----- BUN:CREATININE RATIO [...] bacteria. (SUGGESTIVE OF CONTAMINATION)----- 16:54 Immunofixation, Serum [id number] Comments: TESTING PERFORMED AT: [DA] [facility], [address], PHONE: [phone], ACCREDITATION MANAGER: EDYTA CHAIREZ MD IMMUNOFIXATION RESULT, SERUM COMMENT (Better) Comments: AN APPARENT NORMAL IMMUNOFIXATION PATTERN.----- IMMUNOGLOBULIN G, QN, SERUM 632 MG/DL (Below low threshold) Range: 700- 1600 IMMUNOGLOBULIN A, QN, SERUM 133 MG/DL (Better) Range: 91-414 IMMUNOGLOBULIN M, QN, SERUM 34 MG/DL (Below low threshold) Range: 40-230 16:54 Protein Elec + Interp, Serum [id number] Comments: TESTING PERFORMED AT : [DA] [facility], [address] [place] [address], [place], [address], PHONE: [phone], ACCREDITATION MANAGER: EDYTA CHAIREZ MD PROTEIN, TOTAL, SERUM 5.4 G/DL (Below low threshold) Range: 6.0-8.5 ALBUMIN 3.1 G/DL (Below low threshold) Range: 3.2-5.6 BJLIS-5-KEZTLUBR 0.3 G/DL (Better) Range: 0.1-0.4 AZJRK-1-LTZBYMAR 0.7 G/DL (Better) Range: 0.4-1.2 BETA GLOBULIN 0.8 G/DL (Better) Range: 0.6-1.3 GAMMA GLOBULIN 0.6 G/DL (Better) Range: 0.5-1.6 M-SPIKE NOT OBSERVED G/DL (Better) Range: NOT OBSERVED GLOBULIN, TOTAL 2.3 G/DL (Better) Range: 2.0-4.5 A/G RATIO 1.3 (Better) Range: 0.7-2.0 PLEASE NOTE: COMMENT (Better) Comments: PROTEIN ELECTROPHORESIS SCAN WILL FOLLOW VIA COMPUTER,MAIL, OR UTILITY MANAGER DELIVERY.----- P E INTERPRETATION, S COMMENT (Better) Comments: THE SPE PATTERN REFLECTS HYPOALBUMINEMIA. EVIDENCE OFMONOCLONAL PROTEIN IS NOT APPARENT.----- 16:54 Immunofixation, Urine [id number] Comments: TESTING PERFORMED AT: [DA] [facility], [address] [place] [address], [place], [address], PHONE: , ACCREDITATION MANAGER: EDYTA CHAIREZ MD GISEL INTERPRETATION:U COMMENT (Better) [...] VILLAR AB 3 AU/mL (Better) Range: 0-120 ENGLISH DRAWER AB 10 AU/mL (Better) Range: 0-120 ANTI [...] low threshold) Range: >60 EST GFR, NON-AFR CHINESE 44 ml/min (Below low threshold) Range: >60 Comments: EST GFR is reported in ml/min per 1.73 m2 of body surface area. For -[place], please multiple result by 1.2.----- GLUCOSE 91 [...] On 01-Jan-2015 14:00 * Appointment; Provider: Brayan Aragon On 17-Apr-2010 [...]
--- OUTSIDE RECORDS SUMMARY | 2017-09-09 18:09 | XMS REPORT | Summary of Care ---
Author Author Mary Tilley M.D. Unknown Address [address] [place], [place] [address] Phone Unavailable Care Team Providers Care Manager R D Name Role Phone Mary Tilley M.D. Unavailable [...] for screening mammogram (V76.12, Z12.31) Status: Active Obstructive sleep apnea (327.23, G47.33) Status: Active Osteoporosis (733.00, M81.0) Status: Active Dementia (294.20, F03.90) Status: Active Cough (786.2, R05) Status: Active Weight loss (783.21, R63.4) Status: Active Abdominal pain (789.00, R10.9) Status: Active Erosive gastritis (535.40, K29.00) Status: Active Duodenal ulcer (532.90, K26.9) Status: Active Duodenitis (535.60, K29.80) Status: Active Esophageal stenosis (530.3, K22.2) Status: Active Helicobacter pylori gastritis (chronic gastritis) (535.10, B96.81) Status: Active Dyslipidemia (272.4, E78.5) Status: Active Syncope (780.2, R55) Status: Active Hypertension (401.9, I10) Status: Active Chronic obstructive pulmonary disease (496, J44.9) Status: Active Type 2 diabetes mellitus (250.00, E11.9) Status: Active Chronic kidney disease, stage III (moderate) (585.3, N18.3) Status: Active Depression (311, F32.9) Status: Active Hypotension (458.9, I95.9) Status: Active Blister (919.2) Status: Active Peripheral arterial disease (443.9, I73.9) Status: Active Sick sinus syndrome (427.81, I49.5) Status: Active Dementia of the Alzheimer's type (331.0, G30.9) Status: Active Behavior problems (V40.9, F69) Status: Active Medications Name Dates Details Clopidogrel [...] 1 Refills: 5 TilleyMary M.D.* Started 10-Nov-2011 Nfvjic746 ML Plas Cont Potassium Chloride Krista ER 20 MEQ Oral Tablet Extended Release Take 1 tablet twice daily * Quantity: 180 Refills: 3 TilleyMary M.D.* Started 21-Nov-2013 ActiveEscitalopram Oxalate 10 MG Oral Tablet TAKE 1 TABLET DAILY. * Quantity: 90 Refills: 0 TilleyMary M.D.* [...] of Kidney Surgery RENAL PROFILE 1240 Ordered:04-Dec-2014 RENAL PROFILE 1240 Ordered:12-Dec-2014 HEMOGRAM 7305 Ordered:12-Dec-2014 Immunization Name Dates Details Pneumo (Pneumovax) Administered on:26-Nov-2004 Td Administered on:02-Dec-2005 Influenza Administered on:09-May-2009 Influenza A (H1N1) Monoval PF Intramuscular Suspension Administered on:13-Aug-2009 Pneumo (Pneumovax) Administered on:08-Jul-2010 Fluzone Intramuscular Injectable Administered on:08-Jul-2010 Influenza Lot #: [id number] Administered on:05-Jun-2011 Zoster (Zostavax) Administered on:12-Sep-2012 Influenza Lot #: [id number] Administered on:27-Jun-2013 Family History Unknown Family Member* Name Dates [...] smoker Vital Signs Date Test Result Details 04-Dec-2014 12:26 BP Systolic 110 mm[Hg] Status: [...] ml/min (Better) Range: >60 EST GFR, NON-AFR CUBAN 51 ml/min (Below low threshold) Range: >60 Comments: EST GFR is reported in ml/min per 1.73 m2 of body surface area. For -Cuban, please multiple result by 1.2.----- BUN:CREATININE RATIO [...] bacteria. (SUGGESTIVE OF CONTAMINATION)----- 16:54 Immunofixation, Serum [id number] Comments: TESTING PERFORMED AT: [DA] [employer], [address], PHONE: , TEACHER VISUALLY IMPAIRED: EDYTA CHAIREZ MD IMMUNOFIXATION RESULT, SERUM COMMENT (Better) Comments: AN APPARENT NORMAL IMMUNOFIXATION PATTERN.----- IMMUNOGLOBULIN G, QN, SERUM 632 MG/DL (Below low threshold) Range: 700- 1600 IMMUNOGLOBULIN A, QN, SERUM 133 MG/DL (Better) Range: 91-414 IMMUNOGLOBULIN M, QN, SERUM 34 MG/DL (Below low threshold) Range: 40-230 16:54 Protein Elec + Interp, Serum [id number] Comments: TESTING PERFORMED AT : [DA] [facility], [address] [place] [address], [place], [address], PHONE: [phone], TEACHER VISUALLY IMPAIRED: EDYTA CHAIREZ MD PROTEIN, TOTAL, SERUM 5.4 G/DL (Below low threshold) Range: 6.0-8.5 ALBUMIN 3.1 G/DL (Below low threshold) Range: 3.2-5.6 UTBUK-4-HBGOTYGA 0.3 G/DL (Better) Range: 0.1-0.4 OLEVJ-0-NPAUXYSN 0.7 G/DL (Better) Range: 0.4-1.2 BETA GLOBULIN 0.8 G/DL (Better) Range: 0.6-1.3 GAMMA GLOBULIN 0.6 G/DL (Better) Range: 0.5-1.6 M-SPIKE NOT OBSERVED G/DL (Better) Range: NOT OBSERVED GLOBULIN, TOTAL 2.3 G/DL (Better) Range: 2.0-4.5 A/G RATIO 1.3 (Better) Range: 0.7-2.0 PLEASE NOTE: COMMENT (Better) Comments: PROTEIN ELECTROPHORESIS SCAN WILL FOLLOW VIA COMPUTER,MAIL, OR PUPPY TRAINER DELIVERY.----- P E INTERPRETATION, S COMMENT (Better) Comments: THE SPE PATTERN REFLECTS HYPOALBUMINEMIA. EVIDENCE OFMONOCLONAL PROTEIN IS NOT APPARENT.----- 16:54 Immunofixation, Urine [id number] Comments: TESTING PERFORMED AT: [DA] [facility], [address] [place] [address], [place], [address], PHONE: [phone], TEACHER VISUALLY IMPAIRED: MD GISEL SMITH INTERPRETATION:U COMMENT (Better) Comments: AN APPARENT NORMAL IMMUNOFIXATION PATTERN.----- 07-Dec-2014 12:16 ANALYZER PROFILE 3031 ANTINUCLEAR ANTIBODIES 31 AU/mL (Better) Range: 0-120 Comments: REFERENCE VALUE INTERPRETATION 0-99 U/mL - NEGATIVE 100 - 120 U/mL - EQUIVOCAL >120 U/mL - POSITIVE--- -- SJOGREN'S SSA AB 6 AU/mL (Better) Range: 0-120 SJOGREN'S SSB AB 6 AU/mL (Better) Range: 0-120 VILLAR AB 3 AU/mL (Better) Range: 0-120 HELP DESK TEAM LEADER AB 10 AU/mL (Better) Range: 0-120 ANTI DNA 5 IU/mL (Better) Range: 0-120 CENTROMERE AB 4 AU/mL (Better) Range: 0-120 HISTONE AB 26 AU/mL (Better) Range: 0-120 10-Dec-2014 09:28 ULTRASOUND RENAL SONO Comments: Exam Date: 08 :59Dictation Date: 09:28 XS RENAL SONO (Better) Plan of Care Planned Observations* Name Dates Details Planned Goals not documented Goal Planned Encounters* Appointment; Provider: Jose Antonio Barnes On 16-May-2015 10:30 * Appointment; Provider: Avinash Diaz On 01-Jan-2015 14:00 * Appointment; Provider: Mary Tilley On 27-Dec-2014 11:00 * Appointment; Provider: Brayan Aragon On 17-Apr-2010 [...]
--- OUTSIDE RECORDS SUMMARY | 2017-09-09 18:10 | XMS REPORT | Summary of Care ---
Author Author Avinash Diaz M.D. Unknown Address [address] [place], [place] [phone] Phone Unavailable Care Team Providers Care Sql Server Architect Name Role Phone Mary Tilley M.D. Unavailable [...] Daily * Quantity: 3 Refills: 3 TilleyMary M.D.* Started 13-May-2009 ActiveSimvastatin 40 MG [...] 1 Refills: 5 TilleyMary M.D.* Started 10-Nov-2011 Ahleuy121 ML Plas Cont Potassium Chloride Krista ER [...] Intramuscular Injectable Administered on:08-Jul-2010 Influenza Lot #: [id number] Administered on:05-Jun-2011 Zoster (Zostavax) Administered on:12-Sep-2012 Influenza Lot #: [id number] Administered on:27-Jun-2013 Family History Unknown Family Member* [...] ml/min (Better) Range: >60 EST GFR, NON-AFR PALESTINIAN 51 ml/min (Below low threshold) Range: >60 Comments: EST GFR is reported in ml/min per 1.73 m2 of body surface area. For -Egyptian, please multiple result by 1.2.----- BUN:CREATININE RATIO [...] bacteria. (SUGGESTIVE OF CONTAMINATION)----- 16:54 Immunofixation, Serum [id number] Comments: TESTING PERFORMED AT: [DA] [employer], [address], PHONE: [phone], UNIX MANAGER: EDYTA CHAIREZ MD IMMUNOFIXATION RESULT, SERUM COMMENT (Better) Comments: AN APPARENT NORMAL IMMUNOFIXATION PATTERN.----- IMMUNOGLOBULIN G, QN, SERUM 632 MG/DL (Below low threshold) Range: 700- 1600 IMMUNOGLOBULIN A, QN, SERUM 133 MG/DL (Better) Range: 91-414 IMMUNOGLOBULIN M, QN, SERUM 34 MG/DL (Below low threshold) Range: 40-230 16:54 Protein Elec + Interp, Serum [id number] Comments: TESTING PERFORMED AT : [DA] [facility], [address] [place] [address], [place], [address], PHONE: [phone], UNIX MANAGER: EDYTA CHAIREZ MD PROTEIN, TOTAL, SERUM 5.4 G/DL (Below low threshold) Range: 6.0-8.5 ALBUMIN 3.1 G/DL (Below low threshold) Range: 3.2-5.6 LLVLJ-4-IGOWSAML 0.3 G/DL (Better) Range: 0.1-0.4 PKMRL-4-HSGZFSFY 0.7 G/DL (Better) Range: 0.4-1.2 BETA GLOBULIN 0.8 G/DL (Better) Range: 0.6-1.3 GAMMA GLOBULIN 0.6 G/DL (Better) Range: 0.5-1.6 M-SPIKE NOT OBSERVED G/DL (Better) Range: NOT OBSERVED GLOBULIN, TOTAL 2.3 G/DL (Better) Range: 2.0-4.5 A/G RATIO 1.3 (Better) Range: 0.7-2.0 PLEASE NOTE: COMMENT (Better) Comments: PROTEIN ELECTROPHORESIS SCAN WILL FOLLOW VIA COMPUTER,MAIL, OR REEL WINDER DELIVERY.----- P E INTERPRETATION, S COMMENT (Better) Comments: THE SPE PATTERN REFLECTS HYPOALBUMINEMIA. EVIDENCE OFMONOCLONAL PROTEIN IS NOT APPARENT.----- 16:54 Immunofixation, Urine [id number] Comments: TESTING PERFORMED AT: [DA] [facility], [address] [place] [address], [place], [address], PHONE: , UNIX MANAGER: MD GISEL SMITH INTERPRETATION:U COMMENT (Better) Comments: [...] VILLAR AB 3 AU/mL (Better) Range: 0-120 EMBROIDERY OPERATOR AB 10 AU/mL (Better) Range: 0-120 ANTI [...]
--- OUTSIDE RECORDS SUMMARY | 2017-09-09 18:10 | XMS REPORT | Summary of Care ---
Author Author Avinash Diaz M.D. Unknown Address [address], [place] [phone] Phone Unavailable Care Team Providers Care Test Tube Maker Name Role Phone Mary Tilley M.D. Unavailable [...] 1 Refills: 5 TilleyMary M.D.* Started 10-Nov-2011 Wagzrb115 ML Plas Cont Potassium Chloride Krista ER [...] of Ankle Surgery History of Kidney Surgery ALBUMIN CREAT PANEL 1108 Ordered:26-Oct-2014 CBC w/ Auto Diff 7150 Ordered:26-Oct-2014 Comprehensive Metabolic Panel 1212 Ordered:26-Oct-2014 HEMOGLOBIN A1C 3507 Ordered:26-Oct-2014 LIPID PROFILE 1184 Ordered:26-Oct-2014 THYROID STIM. HORMONE 3602 Ordered:26-Oct-2014 Urinalysis, Reflex to Microscopic or Culture PRN 8005 Ordered:26-Oct-2014 RENAL PROFILE 1240 Ordered:28-Nov-2014 CBC w/ Auto Diff 7150 Ordered:28-Nov-2014 Parathyroid Hormone Intact 3101 Ordered:28-Nov-2014 Immunization Name Dates Details Pneumo (Pneumovax) Administered on:26-Nov-2004 Td Administered on:02-Dec-2005 Influenza Administered on:09-May-2009 Influenza A (H1N1) Monoval PF Intramuscular Suspension Administered on:13-Aug-2009 Pneumo (Pneumovax) Administered on:08-Jul-2010 Fluzone Intramuscular Injectable Administered on:08-Jul-2010 Influenza Lot #: [id number] Administered on:05-Jun-2011 Zoster (Zostavax) Administered on:12-Sep-2012 Influenza Lot #: [id number] Administered on:27-Jun-2013 Family History Unknown Family Member* [...] smoker Vital Signs Date Test Result Details 27-Nov-2014 15:15 BP Systolic 126 mm[Hg] Status: BP Diastolic 68 mm[Hg] Status: Heart Rate 64 /min Status: Respiration Rate 18 /min Status: Temperature 98.7 f Status: Weight 164.2 lb Status: Body Mass Index Calculated 27.32 kg/m2 Status: Body Surface Area Calculated 1.82 m2 Status: 13-Nov-2014 15:13 BP Systolic 124 mm[Hg] Status: BP Diastolic 78 mm[Hg] Status: Heart Rate 68 /min Status: Weight 159 lb Status: O2 SAT 91 % Status: Body Mass Index Calculated 26.46 kg/m2 Status: Body Surface Area Calculated 1.79 m2 Status: 08-Nov-2014 10:01 BP Systolic 114 mm[Hg] Status: BP Diastolic 58 mm[Hg] Status: Heart Rate 64 /min Status: Weight 162 lb Status: Body Mass Index Calculated 26.96 kg/m2 Status: Body Surface Area Calculated 1.81 m2 Status: Results Date Description Value Details Results not documented Plan of Care Planned Observations* Name Dates Details Planned Goals not documented Goal Planned Encounters* Appointment; Provider: Jose Antonio Barnes On 16-May-2015 10:30 * Appointment; Provider: Mary Tilley On 27-Dec-2014 11:00 * Appointment; Provider: Avinash Diaz On 04-Dec-2014 12:30 * Appointment; Provider: Brayan Aragon On 17-Apr-2010 [...] Problem not documented On 22-May-2013 14:00 Appointment; Mayr Tilley Encounter Diagnosis: Problem not documented On 15:30 Appointment; Sylvester Stoll Encounter Diagnosis: Problem not documented On 14:30 Appointment; Brodie Melendez Encounter Diagnosis: Problem not documented On 13:15 Appointment; Mary Tilley Encounter Diagnosis: Problem not documented On 02-Jan-2013 13:30 Appointment; Ernesto Phelan Encounter Diagnosis: Problem not documented On 21-Dec-2012 16:15 Appointment; Mary Tilley Encounter Diagnosis: Problem not documented On 19-Dec-2012 13:15
--- OUTSIDE RECORDS SUMMARY | 2017-09-09 18:11 | XMS REPORT | Summary of Care ---
Author Author Avinash Diaz M.D. Unknown Address [address] [place], [place] [phone] Phone Unavailable Care Team Providers Care Alterations Supervisor Name Role Phone Mary Tilley M.D. Unavailable [...] AT BEDTIME * Quantity: 90 Refills: 3 TlileyMary M.D.* Started 03-Dec-2009 ActiveVitamin D3 2000 UNIT Oral Capsule TAKE 1 CAPSULE BY MOUTH DAILY * Quantity: 90 Refills: 3 * Started 09-Sep-2010 ActiveFish Oil 1000 MG Oral Capsule TAKE 1 CAPSULE DAILY. * Refills: 0 TilleyMary M.D.* Started 23-Oct-2011 ActiveReclast 5 MG/100ML Intravenous Solution Infuse 5mg/1000ml yearlyDx: Osteoporosis 733 * Quantity: 1 Refills: 5 TilleyMary M.D.* Started 10-Nov-2011 Idcons042 ML Plas Cont Potassium Chloride Krista ER [...] to Microscopic or Culture PRN 8005 Ordered:26-Oct-2014 ANALYZER PROFILE 3031 Ordered:04-Dec-2014 C REACTIVE PROTEIN, CRP 2030 Ordered:04-Dec-2014 RENAL PROFILE 1240 Ordered:04-Dec-2014 URINE PROT CREAT RATIO 1193 Ordered:04-Dec-2014 Urinalysis, Reflex to Microscopic or Culture PRN 8005 Ordered:04-Dec-2014 CREATINE KINASE 1300 Ordered:04-Dec-2014 Parathyroid Hormone Intact 3101 Ordered:04-Dec-2014 Immunofixation, Serum [id number] Ordered:04-Dec-2014 Protein Elec + Interp, Serum [id number] Ordered:04-Dec-2014 Immunofixation, Urine [id number] Ordered:04-Dec-2014 ULTRASOUND RENAL SONO Ordered:04-Dec-2014 Immunization Name Dates Details Pneumo (Pneumovax) Administered on:26-Nov-2004 Td Administered on:02-Dec-2005 Influenza Administered on:09-May-2009 Influenza A (H1N1) Monoval PF Intramuscular Suspension Administered on:13-Aug-2009 Pneumo (Pneumovax) Administered on:08-Jul-2010 Fluzone Intramuscular Injectable Administered on:08-Jul-2010 Influenza Lot #: [id number] Administered on:05-Jun-2011 Zoster (Zostavax) Administered on:12-Sep-2012 Influenza Lot #: [id number] Administered on:27-Jun-2013 Family History Unknown Family Member* [...] ml/min (Better) Range: >60 EST GFR, NON-AFR MONTENEGRIN 51 ml/min (Below low threshold) Range: >60 Comments: EST GFR is reported in ml/min per 1.73 m2 of body surface area. For -Azerbaijani, please multiple result by 1.2.----- BUN:CREATININE RATIO 15 (Better) GLUCOSE 88 mg/dL (Better) Range: 70-100 ALBUMIN 3.1 g/dL (Below low threshold) Range: 3.4-5.0 PHOSPHORUS 2.7 mg/dL (Better) Range: 2.5-4.9 CALCIUM 8.7 mg/dL (Better) Range: 8.5-10.1 Plan of Care [...]
--- OUTSIDE RECORDS SUMMARY | 2017-09-09 18:11 | XMS REPORT | Summary of Care ---
Author Author Avinash Diaz M.D. Unknown Address [address] [place], [place] [address] Phone Unavailable Care Team Providers Care Realty Loan Specialist Name Role Phone Mary Tilley M.D. [...] stage III (moderate) (585.3, N18.3) Status: Active Hyperparathyroidism (252.00, E21.3) Status: Active CKD (chronic kidney disease), stage III (585.3, N18.3) Status: Active Edema (782.3, R60.9) Status: Active Medications Name Dates Details Clopidogrel Bisulfate 75 MG Oral Tablet Take 1 tablet daily Quantity: 90 TilleyMary harmon M.D.* Started 18-Jan-2008 ActiveLantus SoloStar 100 UNIT/ML Subcutaneous Solution Pen-injector INJECT 12 UNITS UNDER THE SKIN AT BEDTIME OR DIRECTED FOR DIABETES * Quantity: 3 Refills: 2 Mary Tilley M.D.* Started 18-Jan-2008 ActiveTorsemide 20 MG Oral Tablet take 2 tablets in the AM * Refills: 3 Mary Tilley M.D.* Started 30-Oct-2009 Soialp39 Tablet Bottle Adult Aspirin EC Low Strength 81 MG Oral Tablet Delayed Release TAKE 1 TABLET DAILY. * Refills: 0 ActiveSimvastatin 40 MG Oral Tablet Take 1 tablet at bedtime * Quantity: 90 Refills: 3 Mary Tilley M.D.* Started 27-May-2009 ActiveVitamin D3 2000 UNIT Oral Capsule TAKE 1 CAPSULE BY MOUTH DAILY * Quantity: 90 Refills: 3 * Started 09-Sep-2010 ActiveFish Oil 1000 MG Oral Capsule TAKE 1 CAPSULE DAILY. * Refills: 0 Mary Tilley M.D.* Started 23-Oct-2011 ActiveReclast 5 MG/100ML Intravenous Solution Infuse 5mg/1000ml yearlyDx: Osteoporosis 733 * Quantity: 100 Refills: 5 Mary Tilley M.D.* Started 10-Nov-2011 ActivePotassium Chloride Krista ER 20 MEQ Oral Tablet Extended Release Take 1 tablet twice daily * Quantity: 180 Refills: 3 Mary Tilley M.D.* Started 21-Nov-2013 ActiveEscitalopram Oxalate 10 MG Oral Tablet Take 1 tablet daily * Quantity: 90 Refills: 3 TilleyMary M.D.* Started 25-Sep-2014 ActiveRisperiDONE 1 MG Oral Tablet TAKE 1 TABLET AT BEDTIME. * Quantity: 90 Refills: 3 TilleyMary M.D.* Started 13-Nov-2014 ActiveGabapentin 300 MG Oral Capsule TAKE 1 CAPSULE EVERY NIGHT AT BEDTIME * Quantity: 90 Refills: 2 TilleyMary M.D.* Started 03-Dec-2009 ActiveExelon 13.3 MG/24HR Transdermal Patch [address] 1 PATCH EXTERNALLY DAILY * Quantity: 3 Refills: 2 TilleyMary M.D.* Started 13-May-2009 ActiveKlor-Con M20 20 MEQ Oral Tablet Extended Release Take 1 tablet twice a day * Quantity: 180 Refills: 2 TilleyMary M.D.* Started 16-Oct-2009 Active Allergies and Adverse Reactions Name Dates [...] History of Kidney Surgery RENAL PROFILE 1240 Ordered: MAGNESIUM 1260 Ordered: CBC w/ Auto Diff 7150 Ordered: Immunization Name Dates Details Pneumo (Pneumovax) Administered on:26-Nov-2004 Td Administered on:02-Dec-2005 Influenza Administered on:09-May-2009 Influenza A (H1N1) Monoval PF Intramuscular Suspension Administered on:13-Aug-2009 Pneumo (Pneumovax) Administered on:08-Jul-2010 Fluzone Intramuscular Injectable Administered on:08-Jul-2010 Influenza Lot #: [id number] Administered on:05-Jun-2011 Zoster (Zostavax) Administered on:12-Sep-2012 Influenza Lot #: [id number] Administered on:27-Jun-2013 Prevnar 13 Intramuscular Suspension Lot #: [id number] Administered on:27-Dec-2014 Family History Unknown Family Member* [...] 13:00 * Appointment; Provider: Avinash Diaz On 02-Apr-2015 14:30 * Appointment; Provider: Brayan Aragon On [...]
--- OUTSIDE RECORDS SUMMARY | 2017-09-09 18:12 | XMS REPORT | Summary of Care ---
Author Author Mary Tilley M.D. Unknown Address [address] [place], [place] [phone] Phone Unavailable Care Team Providers Care Lidar Technician Name Role Phone Mary Tilley M.D. Unavailable [...] AT BEDTIME * Quantity: 90 Refills: 3 TilleyaMry M.D.* Started 27-May-2009 ActiveGabapentin 300 MG Oral [...] 1 Refills: 5 TilleyMary M.D.* Started 10-Nov-2011 Yuedlo071 ML Plas Cont Potassium Chloride Krista ER [...] to Microscopic or Culture PRN 8005 Ordered:26-Oct-2014 Immunization Name Dates Details Pneumo (Pneumovax) Administered on:26-Nov-2004 Td Administered on:02-Dec-2005 Influenza Administered on:09-May-2009 Influenza A (H1N1) Monoval PF Intramuscular Suspension Administered on:13-Aug-2009 Pneumo (Pneumovax) Administered on:08-Jul-2010 Fluzone Intramuscular Injectable Administered on:08-Jul-2010 Influenza Lot #: [id number] Administered on:05-Jun-2011 Zoster (Zostavax) Administered on:12-Sep-2012 Influenza Lot #: [id number] Administered on:27-Jun-2013 Family History Unknown Family Member* [...]
--- OUTSIDE RECORDS SUMMARY | 2017-09-09 18:12 | XMS REPORT | Summary of Care ---
Author Author Molly Peters, [employer] Unknown Address [address] [place], [place] [id number] Phone Unavailable Care Team Providers Care Bullet Slug Casting Machine Operator Name Role Phone Mary Tilley M.D. Unavailable [...] Refills: 2 Mary Tilley M.D.* Started 18-Jan-2008 Active3 ML Pen Klor-Con M20 20 MEQ Oral Tablet Extended Release Take 1 tablet twice a day * Quantity: 180 Refills: 2 TilleyMary M.D.* Started 16-Oct-2009 ActiveTorsemide 20 MG Oral Tablet take 2 tablets in the AM * Refills: 3 Mary Tilley M.D.* Started 30-Oct-2009 Tgddpj56 Tablet Bottle Adult Aspirin EC Low Strength [...] AT BEDTIME * Quantity: 90 Refills: 2 Mary Tilley M.D.* Started 03-Dec-2009 ActiveVitamin D3 2000 UNIT [...] of Ankle Surgery History of Kidney Surgery CBC w/ Auto Diff 7150 Ordered:09-Apr-2015 MAGNESIUM 1260 Ordered:09-Apr-2015 RENAL PROFILE 1240 Ordered:09-Apr-2015 Immunization Name Dates Details Pneumo (Pneumovax) Administered on:26-Nov-2004 Td Administered on:02-Dec-2005 Influenza Administered on:09-May-2009 Influenza A (H1N1) Monoval PF Intramuscular Suspension Administered on:13-Aug-2009 Pneumo (Pneumovax) Administered on:08-Jul-2010 Fluzone Intramuscular Injectable Administered on:08-Jul-2010 Influenza Lot #: [id number] Administered on:05-Jun-2011 Zoster (Zostavax) Administered on:12-Sep-2012 Influenza Lot #: [id number] Administered on:27-Jun-2013 Prevnar 13 Intramuscular Suspension Lot #: [id number] Administered on:27-Dec-2014 Family History Unknown Family Member* [...] smoker Vital Signs Date Test Result Details 16-May-2015 10:30 BP Systolic 104 mm[Hg] Status: BP Diastolic 56 mm[Hg] Status: Heart Rate 72 /min Status: Weight 155 lb Status: Body Mass Index Calculated 26.61 kg/m2 Status: Body Surface Area Calculated 1.76 m2 Status: Results Date Description Value Details [...] Problem not documented On 13-Apr-2014 13:00 Appointment; Ball, Endoscopy Encounter Diagnosis: Problem not documented On 06-Apr-2014 [...]
--- OUTSIDE RECORDS SUMMARY | 2017-09-09 18:13 | XMS REPORT | Summary of Care ---
Author Author Mary Tilley M.D. Unknown Address [address] [place], [place] [id number] Phone Unavailable Care Team Providers Care Swimming Pool Salesperson Name Role Phone Mary Tilley M.D. Unavailable [...] 1 Refills: 5 TilleyMary M.D.* Started 10-Nov-2011 Dlawdp241 ML Plas Cont Potassium Chloride Krista ER [...] Intramuscular Injectable Administered on:08-Jul-2010 Influenza Lot #: [id number] Administered on:05-Jun-2011 Zoster (Zostavax) Administered on:12-Sep-2012 Influenza Lot #: [id number] Administered on:27-Jun-2013 Prevnar 13 Intramuscular Suspension Lot #: [id number] Administered on:27-Dec-2014 Family History Unknown Family Member* [...] ml/min (Better) Range: >60 EST GFR, NON-AFR MOSOTHO 51 ml/min (Below low threshold) Range: >60 Comments: EST GFR is reported in ml/min per 1.73 m2 of body surface area. For -Syrian, please multiple result by 1.2.----- BUN:CREATININE RATIO [...] bacteria. (SUGGESTIVE OF CONTAMINATION)----- 16:54 Immunofixation, Serum [id number] Comments: TESTING PERFORMED AT: [[employer]] [facility], [address], PHONE: [phone], CANNONEER: EDYTA CHAIREZ MD IMMUNOFIXATION RESULT, SERUM COMMENT (Better) Comments: AN APPARENT NORMAL IMMUNOFIXATION PATTERN.----- IMMUNOGLOBULIN G, QN, SERUM 632 MG/DL (Below low threshold) Range: 700- 1600 IMMUNOGLOBULIN A, QN, SERUM 133 MG/DL (Better) Range: 91-414 IMMUNOGLOBULIN M, QN, SERUM 34 MG/DL (Below low threshold) Range: 40-230 16:54 Protein Elec + Interp, Serum [id number] Comments: TESTING PERFORMED AT : [DA] [facility], [address] [place] [address], [place], [address], PHONE: [phone], CANNONEER: EDYTA CHAIREZ MD PROTEIN, TOTAL, SERUM 5.4 G/DL (Below low threshold) Range: 6.0-8.5 ALBUMIN 3.1 G/DL (Below low threshold) Range: 3.2-5.6 LVZQM-0-JICZROSO 0.3 G/DL (Better) Range: 0.1-0.4 IZDXU-9-TZYKSBXF 0.7 G/DL (Better) Range: 0.4-1.2 BETA GLOBULIN 0.8 G/DL (Better) Range: 0.6-1.3 GAMMA GLOBULIN 0.6 G/DL (Better) Range: 0.5-1.6 M-SPIKE NOT OBSERVED G/DL (Better) Range: NOT OBSERVED GLOBULIN, TOTAL 2.3 G/DL (Better) Range: 2.0-4.5 A/G RATIO 1.3 (Better) Range: 0.7-2.0 PLEASE NOTE: COMMENT (Better) Comments: PROTEIN ELECTROPHORESIS SCAN WILL FOLLOW VIA COMPUTER,MAIL, OR ROAD BOSS DELIVERY.----- P E INTERPRETATION, S COMMENT (Better) Comments: THE SPE PATTERN REFLECTS HYPOALBUMINEMIA. EVIDENCE OFMONOCLONAL PROTEIN IS NOT APPARENT.----- 16:54 Immunofixation, Urine [id number] Comments: TESTING PERFORMED AT: [DA] [facility], [address] [place] [address], [place], [address], PHONE: [phone], CANNONEER: EDYTA CHAIREZ MD GISEL INTERPRETATION:U COMMENT (Better) [...] VILLAR AB 3 AU/mL (Better) Range: 0-120 BASKET BOTTOM MACHINE OPERATOR AB 10 AU/mL (Better) Range: 0-120 [...] low threshold) Range: >60 EST GFR, NON-AFR MOSOTHO 44 ml/min (Below low threshold) Range: >60 Comments: EST GFR is reported in ml/min per 1.73 m2 of body surface area. For -Syrian, please multiple result by 1.2.----- GLUCOSE 91 [...]
--- OUTSIDE RECORDS SUMMARY | 2017-09-09 18:13 | XMS REPORT | Summary of Care ---
Author Author Molly Peters, [employer] Unknown Address [address], [place] [id number] Phone Unavailable Care Team Providers Care Cardiovascular Tech Name Role Phone Mary Tilley M.D. Unavailable [...] Sick sinus syndrome (427.81, I49.5) Status: Active Osteoporosis (733.00, M81.0) Status: Active Obstructive sleep apnea (327.23, G47.33) Status: Active Peripheral arterial disease (443.9, I73.9) Status: Active Hyperparathyroidism (252.00, E21.3) Status: Active [...] the Alzheimer's type (331.0, G30.9) Status: Active Medications Name Dates Details Clopidogrel [...] Refills: 3 Mary Tilley M.D.* Started 30-Oct-2009 Yygmxs40 Tablet Bottle Adult Aspirin EC Low Strength [...] Intramuscular Injectable Administered on:08-Jul-2010 Influenza Lot #: [id number] Administered on:05-Jun-2011 Zoster (Zostavax) Administered on:12-Sep-2012 Influenza Lot #: [id number] Administered on:27-Jun-2013 Prevnar 13 Intramuscular Suspension Lot #: [id number] Administered on:27-Dec-2014 Family History Unknown Family Member* [...]
--- OUTSIDE RECORDS SUMMARY | 2017-09-09 18:14 | XMS REPORT ---
Author Author GENERATED, SYSTEM Organization Unknown Address Unknown Phone Unavailable Care Team Providers Care Brush Holder Assembler Name Role Phone MD KRISS, MC PP Reason For Visit Chief Complaint 02/19/15 BILATERAL,LE EDEMA Social History Functional Status Vital Signs Results Problems Encounter Diagnosis No relevant problems exist. Encounters Encounter Diagnosis No relevant problems exist. Plan of Care Procedures * Completed Procedure Code: 00.00 Procedure Name: not valued, on 02/01/2015 12: 00 AM * Completed Procedure Code: 99.29 Procedure Name: not valued, on 01/19/2014 12: 00 AM * Completed , on 01/14/2009 12:00 AM Immunizations No immunizations administered or ordered. Hospital Course Hospital Discharge Instructions Allergies, Adverse Reactions, Alerts * Neosporin (bpp-gti-bcpwz) causes Unknown. * Benadryl causes unspecified. * No Latex Allergy. * No IV Contrast Allergy. Medication Medication reconciliation has not been performed.
--- OUTSIDE RECORDS SUMMARY | 2017-09-09 18:14 | XMS REPORT | Summary of Care ---
Author Author Avinash Diaz M.D. Unknown Address [address], [place] [id number] Phone Unavailable Care Team Providers Care Member Of The Legislative Assembly Name Role Phone Mary Tilley M.D. Unavailable [...] stage III (moderate) (585.3, N18.3) Status: Active CKD (chronic kidney disease), stage III (585.3, N18.3) Status: Active Edema (782.3, R60.9) Status: Active Hyperparathyroidism (252.00, E21.3) Status: Active Medications Name Dates Details Clopidogrel Bisulfate 75 MG Oral Tablet take one tablet by mouth every day Quantity: 90 TilleyMary harmon M.D.* Started 18-Jan-2008 ActiveLantus SoloStar 100 UNIT/ML Subcutaneous Solution Pen-injector Inject 12 U Subcutaneously at bedtime or as directed for diabetes * Quantity: 1 Refills: 3 Mary Tilley M.D.* Started 18-Jan-2008 Active3 ML Pen (5 Pens) Torsemide 20 MG Oral Tablet 1QD - TAKE ONE TABLET BY MOUTH EVERY DAY * Quantity: 90 Refills: 3 Mary Tilley M.D.* Started 30-Oct-2009 ActiveAdult Aspirin EC Low Strength 81 MG Oral Tablet Delayed Release TAKE 1 TABLET DAILY. * Refills: 0 ActiveExelon 13.3 MG/24HR Transdermal Patch [address] 1 PATCH Daily * Quantity: 3 Refills: 3 Mary Tilley M.D.* Started 13-May-2009 ActiveSimvastatin 40 MG Oral Tablet TAKE ONE TABLET BY MOUTH AT BEDTIME * Quantity: 90 Refills: 3 Mary Tilley M.D.* Started 27-May-2009 ActiveGabapentin 300 MG Oral Capsule TAKE 1 CAPSULE BY MOUTH EVERY NIGHT AT BEDTIME * Quantity: 90 Refills: 3 Mary Tilley M.D.* Started 03-Dec-2009 ActiveVitamin D3 2000 UNIT Oral Capsule TAKE 1 CAPSULE BY MOUTH DAILY * Quantity: 90 Refills: 3 * Started 09-Sep-2010 ActiveFish Oil 1000 MG Oral Capsule TAKE 1 CAPSULE DAILY. * Refills: 0 Mary Tilley M.D.* Started 23-Oct-2011 ActiveReclast 5 MG/100ML Intravenous Solution Infuse 5mg/1000ml yearlyDx: Osteoporosis 733 * Quantity: 1 Refills: 5 TilleyMary M.D.* Started 10-Nov-2011 [id number] ML Plas Cont Potassium Chloride Krista ER [...] Intramuscular Injectable Administered on:08-Jul-2010 Influenza Lot #: [id number] Administered on:05-Jun-2011 Zoster (Zostavax) Administered on:12-Sep-2012 Influenza Lot #: [id number] Administered on:27-Jun-2013 Prevnar 13 Intramuscular Suspension Lot #: [id number] Administered on:27-Dec-2014 Family History Unknown Family Member* [...] Body Surface Area Calculated 1.83 m2 Status: Results Date Description Value Details [...] ml/min (Better) Range: >60 EST GFR, NON-AFR BERMUDIAN 51 ml/min (Below low threshold) Range: >60 Comments: EST GFR is reported in ml/min per 1.73 m2 of body surface area. For -Mauritanian, please multiple result by 1.2.----- BUN:CREATININE RATIO [...] bacteria. (SUGGESTIVE OF CONTAMINATION)----- 16:54 Immunofixation, Serum [id number] Comments: TESTING PERFORMED AT: [DA] [facility], [address], PHONE: [phone], STREET WORKER: EDYTA CHAIREZ MD IMMUNOFIXATION RESULT, SERUM COMMENT (Better) Comments: AN APPARENT NORMAL IMMUNOFIXATION PATTERN.----- IMMUNOGLOBULIN G, QN, SERUM 632 MG/DL (Below low threshold) Range: 700- 1600 IMMUNOGLOBULIN A, QN, SERUM 133 MG/DL (Better) Range: 91-414 IMMUNOGLOBULIN M, QN, SERUM 34 MG/DL (Below low threshold) Range: 40-230 16:54 Protein Elec + Interp, Serum [id number] Comments: TESTING PERFORMED AT : [DA] [facility] [address] [address], [place], [address], PHONE: [phone], STREET WORKER: EDYTA CHAIREZ MD PROTEIN, TOTAL, SERUM 5.4 G/DL (Below low threshold) Range: 6.0-8.5 ALBUMIN 3.1 G/DL (Below low threshold) Range: 3.2-5.6 LTLUU-3-KWMEHAYA 0.3 G/DL (Better) Range: 0.1-0.4 XCMOQ-7-OOVIWROY 0.7 G/DL (Better) Range: 0.4-1.2 BETA GLOBULIN 0.8 G/DL (Better) Range: 0.6-1.3 GAMMA GLOBULIN 0.6 G/DL (Better) Range: 0.5-1.6 M-SPIKE NOT OBSERVED G/DL (Better) Range: NOT OBSERVED GLOBULIN, TOTAL 2.3 G/DL (Better) Range: 2.0-4.5 A/G RATIO 1.3 (Better) Range: 0.7-2.0 PLEASE NOTE: COMMENT (Better) Comments: PROTEIN ELECTROPHORESIS SCAN WILL FOLLOW VIA COMPUTER,MAIL, OR COMMERCIAL INTELLIGENCE MANAGER DELIVERY.----- P E INTERPRETATION, S COMMENT (Better) Comments: THE SPE PATTERN REFLECTS HYPOALBUMINEMIA. EVIDENCE OFMONOCLONAL PROTEIN IS NOT APPARENT.----- 16:54 Immunofixation, Urine [id number] Comments: TESTING PERFORMED AT: [DA] [facility], [address] [place] [address], [place], [address], PHONE: [phone], STREET WORKER: EDYTA CHAIREZ MD GISEL INTERPRETATION:U COMMENT (Better) [...] VILLAR AB 3 AU/mL (Better) Range: 0-120 MANAGER EMS AB 10 AU/mL (Better) Range: 0-120 ANTI [...] low threshold) Range: >60 EST GFR, NON-AFR BERMUDIAN 44 ml/min (Below low threshold) Range: >60 Comments: EST GFR is reported in ml/min per 1.73 m2 of body surface area. For -Mauritanian, please multiple result by 1.2.----- GLUCOSE 91 [...] not documented On 06-Apr-2014 15:00 Appointment; Luz Lnudberg Encounter Diagnosis: Problem not documented On 06-Apr-2014 [...]
--- OUTSIDE RECORDS SUMMARY | 2017-09-09 18:14 | XMS REPORT | Summary of Care ---
Author Author Kimble APRN, R Darla Organization Unknown Address [address], [place] [address] Phone Unavailable Care Team Providers Care Popcorn Machine Operator Name Role Phone Mary Tilley [...] Status: Active Hypokalemia (276.8, E87.6) Status: Active Medications Name Dates Details Clopidogrel Bisulfate 75 MG Oral Tablet Take 1 tablet daily Quantity: 90 Mary Tilley M.D.* Started 18-Jan-2008 ActiveLantus SoloStar 100 UNIT/ML Subcutaneous Solution Pen-injector INJECT 12 UNITS UNDER THE SKIN AT BEDTIME OR DIRECTED FOR DIABETES * Quantity: 3 Refills: 2 Mary Tilley M.D.* Started 18-Jan-2008 ActiveKlor-Con M20 20 MEQ Oral Tablet Extended Release Take 1 tablet twice a day * Quantity: 180 Refills: 2 Mary Tilley M.D.* Started 16-Oct-2009 ActiveTorsemide 20 MG Oral Tablet take 2 tablets in the AM * Refills: 3 Mary Tilley M.D.* Started 30-Oct-2009 Ykovey33 Tablet Bottle Adult Aspirin EC Low Strength [...] 100 Refills: 5 TilleyMary M.D.* Started 10-Nov-2011 ActivePotassium Chloride Krista ER [...] Intramuscular Injectable Administered on:08-Jul-2010 Influenza Lot #: [id number] Administered on:05-Jun-2011 Zoster (Zostavax) Administered on:12-Sep-2012 Influenza Lot #: [id number] Administered on:27-Jun-2013 Prevnar 13 Intramuscular Suspension Lot #: [id number] Administered on:27-Dec-2014 Family History Unknown Family Member* [...] smoker Vital Signs Date Test Result Details 02-Apr-2015 14:15 BP Systolic 110 mm[Hg] Status: BP Diastolic 60 mm[Hg] Status: Heart Rate 66 /min Status: Results Date Description Value Details 02-Apr-2015 13:48 CBC w/ Auto Diff 7150 WBC 6.7 K/uL (Better) Range: 4.5-11.0 RBC 4.60 mil/uL (Better) Range: 3.60-5.00 HGB 13.8 g/dL (Better) Range: 12.0-16.0 HCT 41.4 % (Better) Range: 36.0-48.0 MCV 89.9 fL (Better) Range: 80.0-99.0 MCH 30.0 pg (Better) Range: 27.3-32.5 MCHC 33.4 % (Better) Range: 32.0-36.0 RDW 14.1 % (Better) Range: 11.6-14.8 PLATELETS 137 K/uL (Below low threshold) Range: 150-400 MPV 8.8 fL (Better) Range: 6.0-11.0 %NEUTRO 69.8 % (Better) Range: 37.0-80.0 %LYMPHS 20.4 % (Better) Range: 13.0-50.0 %MONO 4.9 % (Better) Range: 0.0-12.0 %EOS 1.4 % (Better) Range: 0.0-7.0 %BASO 0.5 % (Better) Range: 0.0-2.5 %VIRGIE 2.9 % (Better) Range: 0.0-5.0 NEUTRO 4.7 K/uL (Better) Range: 2.0-6.9 LYMPHS 1.4 K/uL (Better) Range: 0.6-3.4 MONOS 0.3 K/uL (Better) Range: 0.0-0.9 EOS 0.1 K/uL (Better) Range: 0.0-0.7 BASO 0.0 K/uL (Better) Range: 0.0-0.2 14:10 MAGNESIUM 1260 MAGNESIUM 1.7 mg/dL (Below low threshold) Range: 1.8-2.4 14:10 RENAL PROFILE 1240 SODIUM 140 mmol/L (Better) Range: 133-144 POTASSIUM 3.7 mmol/L (Better) Range: 3.5-5.1 CHLORIDE 101 mmol/L (Better) Range: 98-110 CARBON DIOXIDE 30.1 mmol/L (Better) Range: 23.0-33.0 ANION GAP 9 mmol/L (Better) Range: 6-16 BUN 25 mg/dL (Above high threshold) Range: 7-18 CREATININE, SERUM 1.14 mg/dL (Above high threshold) Range: 0.55-1.02 Comments: Please note new reference ranges effective 2015.----- EST GFR, 56 ml/min (Below low threshold) Range: >60 EST GFR, NON-AFR ANDORRAN 46 ml/min (Below low threshold) Range: >60 Comments: EST GFR is reported in ml/min per 1.73 m2 of body surface area. For -Japanese, please multiple result by 1.2.----- BUN:CREATININE RATIO 22 (Better) GLUCOSE 149 mg/dL (Above high threshold) Range: 70-100 Comments: Variance from previous testing noted.----- ALBUMIN 3.1 g/dL (Below low threshold) Range: 3.4-5.0 PHOSPHORUS 3.0 mg/dL (Better) Range: 2.6-4.7 Comments: Please note new reference ranges effective 2015.----- CALCIUM 9.3 mg/dL (Better) Range: 8.5-10.1 Plan of Care Planned Observations* Name Dates Details Planned Goals not documented Goal Planned Encounters* Appointment; Provider: Avinash Diaz On 08-Jul-2015 14:30 * Appointment; Provider: Jose Antonio Barnes On 16-May-2015 10:30 * Appointment; Provider: Mayr Tilley On 15-Apr-2015 13:00 * Appointment; Provider: Brayan Aragon On 17-Apr-2010 [...]
--- OUTSIDE RECORDS SUMMARY | 2017-09-09 18:15 | XMS REPORT | Summary of Care ---
Author Author Avinash Diaz M.D. Unknown Address [address], [place] [phone] Phone Unavailable Care Team Providers Care Yarn Weight And Strength Tester Name Role Phone Mary Tilley M.D. Unavailable [...] Take 1 tablet daily Quantity: 90 TilleyMary M.D.* Started 18-Jan-2008 ActiveLantus SoloStar 100 UNIT/ML Subcutaneous Solution Pen-injector INJECT 12 UNITS UNDER THE SKIN AT BEDTIME OR DIRECTED FOR DIABETES * Quantity: 3 Refills: 2 Mary Tilley M.D.* Started 18-Jan-2008 ActiveTorsemide 20 MG Oral Tablet Take 1 tablet daily * Quantity: 90 Refills: 3 Mary Tilley [...] 180 Refills: 3 TilleyMary M.D.* Started 21-Nov-2013 ActiveRisperiDONE 1 MG Oral Tablet TAKE 1 TABLET AT BEDTIME. * Quantity: 90 Refills: 3 TilleyMary M.D.* Started 13-Nov-2014 ActiveEscitalopram Oxalate 10 MG Oral Tablet Take 1 tablet daily * Quantity: 90 Refills: 0 TilleyMary M.D.* Started 25-Sep-2014 Active Allergies and Adverse Reactions Name Dates [...] of Ankle Surgery History of Kidney Surgery HEMOGLOBIN A1C 3507 Ordered:27-Dec-2014 RENAL PROFILE 1240 Ordered: Immunization Name Dates Details Pneumo (Pneumovax) Administered on:26-Nov-2004 Td Administered on:02-Dec-2005 Influenza Administered on:09-May-2009 Influenza A (H1N1) Monoval PF Intramuscular Suspension Administered on:13-Aug-2009 Pneumo (Pneumovax) Administered on:08-Jul-2010 Fluzone Intramuscular Injectable Administered on:08-Jul-2010 Influenza Lot #: [id number] Administered on:05-Jun-2011 Zoster (Zostavax) Administered on:12-Sep-2012 Influenza Lot #: [id number] Administered on:27-Jun-2013 Prevnar 13 Intramuscular Suspension Lot #: [id number] Administered on:27-Dec-2014 Family History Unknown Family Member* [...] 13:00 * Appointment; Provider: Avinash Diaz On 15:30 * Appointment; Provider: Brayan Aragon On 17-Apr-2010 [...]
--- OUTSIDE RECORDS SUMMARY | 2017-09-09 18:15 | XMS REPORT | Summary of Care ---
Author Author Avinash Diaz M.D. Unknown Address [address], [place] [address] Phone Unavailable Care Team Providers Care Pet Supplies Salesperson Name Role Phone Mary Tilley M.D. [...] 1 Refills: 5 TilleyMary M.D.* Started 10-Nov-2011 [id number] ML Plas Cont Potassium Chloride Krista ER [...] Intramuscular Injectable Administered on:08-Jul-2010 Influenza Lot #: [id number] Administered on:05-Jun-2011 Zoster (Zostavax) Administered on:12-Sep-2012 Influenza Lot #: [id number] Administered on:27-Jun-2013 Prevnar 13 Intramuscular Suspension Lot #: [id number] Administered on:27-Dec-2014 Family History Unknown Family Member* [...] smoker Vital Signs Date Test Result Details 01-Jan-2015 14:09 BP Systolic 125 mm[Hg] Status: BP Diastolic 58 mm[Hg] Status: Heart Rate 72 /min Status: Weight 159 lb Status: Body Mass Index Calculated 27.29 kg/m2 Status: Body Surface Area Calculated 1.77 m2 Status: 27-Dec-2014 11:29 BP Systolic 120 mm[Hg] Status: [...] ml/min (Better) Range: >60 EST GFR, NON-AFR CANADIAN 51 ml/min (Below low threshold) Range: >60 Comments: EST GFR is reported in ml/min per 1.73 m2 of body surface area. For -Swedish, please multiple result by 1.2.----- BUN:CREATININE RATIO [...] bacteria. (SUGGESTIVE OF CONTAMINATION)----- 16:54 Immunofixation, Serum [id number] Comments: TESTING PERFORMED AT: [DA] [facility] [address] [address], [place], [address], PHONE: , BIOLOGY INTERN: EDYTA CHAIREZ MD IMMUNOFIXATION RESULT, SERUM COMMENT (Better) Comments: AN APPARENT NORMAL IMMUNOFIXATION PATTERN.----- IMMUNOGLOBULIN G, QN, SERUM 632 MG/DL (Below low threshold) Range: 700- 1600 IMMUNOGLOBULIN A, QN, SERUM 133 MG/DL (Better) Range: 91-414 IMMUNOGLOBULIN M, QN, SERUM 34 MG/DL (Below low threshold) Range: 40-230 16:54 Protein Elec + Interp, Serum [id number] Comments: TESTING PERFORMED AT : [DA] [facility], [address] [place] [address], [place], [address], PHONE: [phone], BIOLOGY INTERN: EDYTA CHAIREZ MD PROTEIN, TOTAL, SERUM 5.4 G/DL (Below low threshold) Range: 6.0-8.5 ALBUMIN 3.1 G/DL (Below low threshold) Range: 3.2-5.6 MQVWK-4-MOYBLQDS 0.3 G/DL (Better) Range: 0.1-0.4 KMAUD-5-HCTSJJLV 0.7 G/DL (Better) Range: 0.4-1.2 BETA GLOBULIN 0.8 G/DL (Better) Range: 0.6-1.3 GAMMA GLOBULIN 0.6 G/DL (Better) Range: 0.5-1.6 M-SPIKE NOT OBSERVED G/DL (Better) Range: NOT OBSERVED GLOBULIN, TOTAL 2.3 G/DL (Better) Range: 2.0-4.5 A/G RATIO 1.3 (Better) Range: 0.7-2.0 PLEASE NOTE: COMMENT (Better) Comments: PROTEIN ELECTROPHORESIS SCAN WILL FOLLOW VIA COMPUTER,MAIL, OR PICTURE BOOKER DELIVERY.----- P E INTERPRETATION, S COMMENT (Better) Comments: THE SPE PATTERN REFLECTS HYPOALBUMINEMIA. EVIDENCE OFMONOCLONAL PROTEIN IS NOT APPARENT.----- 16:54 Immunofixation, Urine [id number] Comments: TESTING PERFORMED AT: [DA] [facility], [address] [place] [address], [place], [address], PHONE: , BIOLOGY INTERN: EDYTA CHAIREZ MD GISEL INTERPRETATION:U COMMENT (Better) [...] VILLAR AB 3 AU/mL (Better) Range: 0-120 BEN DAY ARTIST AB 10 AU/mL (Better) Range: 0-120 ANTI [...] low threshold) Range: >60 EST GFR, NON-AFR CANADIAN 44 ml/min (Below low threshold) Range: >60 Comments: EST GFR is reported in ml/min per 1.73 m2 of body surface area. For -Swedish, please multiple result by 1.2.----- GLUCOSE 91 [...] 13:00 * Appointment; Provider: Avinash Diaz On 15:15 * Appointment; Provider: Brayan Aragon On 17-Apr-2010 [...]
--- OUTSIDE RECORDS SUMMARY | 2017-09-09 18:16 | XMS REPORT | Summary of Care ---
Author Author Avinash Diaz M.D. Unknown Address [address], [place] [phone] Phone Unavailable Care Team Providers Care Large Animal Veterinarian Name Role Phone Mary Tilley M.D. Unavailable [...] 1 Refills: 5 TilleyMary M.D.* Started 10-Nov-2011 Jqbnpj125 ML Plas Cont Potassium Chloride Krista ER [...] PRN 8005 Ordered:26-Oct-2014 ANALYZER PROFILE 3031 Ordered:04-Dec-2014 RENAL PROFILE 1240 Ordered:04-Dec-2014 Parathyroid Hormone Intact 3101 Ordered:04-Dec-2014 Immunofixation, Serum [id number] Ordered:04-Dec-2014 Protein Elec + Interp, Serum [id number] Ordered:04-Dec-2014 Immunofixation, Urine [id number] Ordered:04-Dec-2014 ULTRASOUND RENAL SONO Ordered:04-Dec-2014 Immunization Name Dates Details Pneumo (Pneumovax) Administered on:26-Nov-2004 Td Administered on:02-Dec-2005 Influenza Administered on:09-May-2009 Influenza A (H1N1) Monoval PF Intramuscular Suspension Administered on:13-Aug-2009 Pneumo (Pneumovax) Administered on:08-Jul-2010 Fluzone Intramuscular Injectable Administered on:08-Jul-2010 Influenza Lot #: [id number] Administered on:05-Jun-2011 Zoster (Zostavax) Administered on:12-Sep-2012 Influenza Lot #: [id number] Administered on:27-Jun-2013 Family History Unknown Family Member* [...] ml/min (Better) Range: >60 EST GFR, NON-AFR TONGAN 51 ml/min (Below low threshold) Range: >60 Comments: EST GFR is reported in ml/min per 1.73 m2 of body surface area. For -Ivorian, please multiple result by 1.2.----- BUN:CREATININE RATIO [...] CREATINE KINASE 31 U/L (Better) Range: 26-192 Plan of Care Planned Observations* Name Dates [...]
--- OUTSIDE RECORDS SUMMARY | 2017-09-09 18:16 | XMS REPORT ---
Author Author GENERATED, SYSTEM Organization Unknown Address Unknown Phone Unavailable Care Team Providers Care Client Experience Consultant Name Role Phone MD KRISS, MC PP [...] Instructions Allergies, Adverse Reactions, Alerts * Neosporin (ydh-obz-jtaih) causes Unknown. * Benadryl causes unspecified. * No Latex Allergy. * No IV Contrast Allergy. Medication Medication reconciliation has not been performed.
--- OUTSIDE RECORDS SUMMARY | 2017-09-09 18:16 | XMS REPORT | Summary of Care ---
Author Author Mary Tilley M.D. Unknown Address [address] [place], [place] [id number] Phone Unavailable Care Team Providers Care Agate Setter Name Role Phone Mary Tilley M.D. Unavailable [...] Refills: 3 Mary Tilley M.D.* Started 30-Oct-2009 Jnqkpu26 Tablet Bottle Adult Aspirin EC Low Strength 81 MG Oral Tablet Delayed Release TAKE 1 TABLET DAILY. * Refills: 0 ActiveExelon 13.3 MG/24HR Transdermal Patch [address] 1 PATCH EXTERNALLY DAILY * Quantity: 3 Refills: 2 Mary Tilley M.D.* Started 13-May-2009 ActiveSimvastatin 40 MG Oral Tablet Take 1 tablet at bedtime * Quantity: 90 Refills: 3 ItlleyMary M.D.* Started 27-May-2009 ActiveGabapentin 300 MG Oral [...] Intramuscular Injectable Administered on:08-Jul-2010 Influenza Lot #: [id number] Administered on:05-Jun-2011 Zoster (Zostavax) Administered on:12-Sep-2012 Influenza Lot #: [id number] Administered on:27-Jun-2013 Prevnar 13 Intramuscular Suspension Lot #: [id number] Administered on:27-Dec-2014 Family History Unknown Family Member* [...] smoker Vital Signs Date Test Result Details 15-Apr-2015 14:06 BP Systolic 124 mm[Hg] Status: BP Diastolic 68 mm[Hg] Status: Heart Rate 66 /min Status: Weight 155 lb Status: O2 SAT 97 % Status: Body Mass Index Calculated 26.61 kg/m2 Status: Body Surface Area Calculated 1.76 m2 Status: 02-Apr-2015 14:15 BP Systolic 110 mm[Hg] Status: [...] low threshold) Range: >60 EST GFR, NON-AFR LATVIAN 46 ml/min (Below low threshold) Range: >60 Comments: EST GFR is reported in ml/min per 1.73 m2 of body surface area. For -Zambian, please multiple result by 1.2.----- BUN:CREATININE RATIO 22 (Better) GLUCOSE 149 mg/dL (Above high threshold) Range: 70-100 Comments: Variance from previous testing noted.----- ALBUMIN 3.1 g/dL (Below low threshold) Range: 3.4-5.0 PHOSPHORUS 3.0 mg/dL (Better) Range: 2.6-4.7 Comments: Please note new reference ranges effective 2015.----- CALCIUM 9.3 mg/dL (Better) Range: 8.5-10.1 15-Apr-2015 13:36 HEMOGLOBIN A1C 3507 Hemoglobin A1C 5.8 % (Better) ESTIMATED AVG. GLUCOSE 120 (Better) Plan of Care Planned Observations* Name Dates Details Planned Goals not documented Goal Planned Encounters* Appointment; Provider: Avinash Diaz On 08-Jul-2015 14:30 * Appointment; Provider: Jose Antonio Barnes On 16-May-2015 10:30 * Appointment; Provider: Brayan Aragon On 17-Apr-2010 [...] Diagnosis: Problem not documented On 15:00 Appointment; Jonhna Watters Encounter Diagnosis: Problem not documented On [...]
--- OUTSIDE RECORDS SUMMARY | 2017-09-09 18:17 | XMS REPORT | Summary of Care ---
Author Author Mary Tilley M.D. Unknown Address [address] [place], [place] [phone] Phone Unavailable Care Team Providers Care Braiding Operator Name Role Phone Mary Tilley M.D. [...] Refills: 3 Mary Tilley M.D.* Started 30-Oct-2009 Mdssuo03 Tablet Bottle Adult Aspirin EC Low Strength [...] Intramuscular Injectable Administered on:08-Jul-2010 Influenza Lot #: [id number] Administered on:05-Jun-2011 Zoster (Zostavax) Administered on:12-Sep-2012 Influenza Lot #: [id number] Administered on:27-Jun-2013 Prevnar 13 Intramuscular Suspension Lot #: [id number] Administered on:27-Dec-2014 Family History Unknown Family Member* [...] low threshold) Range: >60 EST GFR, NON-AFR DUTCH 46 ml/min (Below low threshold) Range: >60 Comments: EST GFR is reported in ml/min per 1.73 m2 of body surface area. For -Tuvaluan, please multiple result by 1.2.----- BUN:CREATININE RATIO [...]
--- OUTSIDE RECORDS SUMMARY | 2017-09-09 18:17 | XMS REPORT | Summary of Care ---
Author Author Kimble APRN, R Darla Organization Unknown Address [address] [place], [place] [phone] Phone Unavailable Care Team Providers Care Proof Plate Maker Name Role Phone Mary Tilley M.D. [...] of Kidney Surgery HEMOGLOBIN A1C 3507 Ordered:27-Dec-2014 Immunization Name Dates Details Pneumo (Pneumovax) Administered on:26-Nov-2004 Td Administered on:02-Dec-2005 Influenza Administered on:09-May-2009 Influenza A (H1N1) Monoval PF Intramuscular Suspension Administered on:13-Aug-2009 Pneumo (Pneumovax) Administered on:08-Jul-2010 Fluzone Intramuscular Injectable Administered on:08-Jul-2010 Influenza Lot #: [id number] Administered on:05-Jun-2011 Zoster (Zostavax) Administered on:12-Sep-2012 Influenza Lot #: [id number] Administered on:27-Jun-2013 Prevnar 13 Intramuscular Suspension Lot #: [id number] Administered on:27-Dec-2014 Family History Unknown Family Member* [...] smoker Vital Signs Date Test Result Details 15:13 BP Systolic 108 mm[Hg] Status: BP Diastolic 59 mm[Hg] Status: Heart Rate 78 /min Status: Results Date Description Value Details 15:21 RENAL PROFILE 1240 SODIUM 135 mmol/L (Better) Range: 133-144 POTASSIUM 3.9 mmol/L (Better) Range: 3.5-5.1 CHLORIDE 99 mmol/L (Better) Range: 98-110 CARBON DIOXIDE 33.0 mmol/L (Better) Range: 23.0-33.0 ANION GAP 3 mmol/L (Below low threshold) Range: 6-16 BUN 27 mg/dL (Above high threshold) Range: 7-18 CREATININE, SERUM 1.40 mg/dL (Above high threshold) Range: 0.70-1.30 Comments: Please note new reference ranges effective 2015.----- EST GFR, 44 ml/min (Below low threshold) Range: >60 EST GFR, NON-AFR BRUNEIAN 36 ml/min (Below low threshold) Range: >60 Comments: EST GFR is reported in ml/min per 1.73 m2 of body surface area. For -Danish, please multiple result by 1.2.----- BUN:CREATININE RATIO 19 (Better) GLUCOSE 94 mg/dL (Better) Range: 70-100 ALBUMIN 3.0 g/dL (Below low threshold) Range: 3.4-5.0 PHOSPHORUS 2.8 mg/dL (Better) Range: 2.5-4.9 CALCIUM 8.5 mg/dL (Better) Range: 8.5-10.1 Plan of Care [...]
--- OUTSIDE RECORDS SUMMARY | 2017-09-09 18:17 | XMS REPORT | Summary of Care ---
Author Author Avinash Diaz M.D. Unknown Address [address], [place] [id number] Phone Unavailable Care Team Providers Care Director Systems Name Role Phone Mary Tilley M.D. Unavailable [...] Status: Active Dementia (294.20, F03.90) Status: Active Weight loss (783.21, R63.4) Status: Active Abdominal pain (789.00, R10.9) Status: Active Erosive gastritis (535.40, K29.00) Status: Active Duodenal ulcer (532.90, K26.9) Status: Active Duodenitis (535.60, K29.80) Status: Active Esophageal stenosis (530.3, K22.2) Status: Active Helicobacter pylori gastritis (chronic gastritis) (535.10, K29.70) Status: Active Syncope (780.2, R55) Status: Active Chronic obstructive pulmonary disease (496, J44.9) Status: Active Hypotension (458.9, I95.9) Status: Active Blister (919.2, T14.8) Status: Active Osteoporosis (733.00, M81.0) Status: Active Obstructive sleep apnea (327.23, G47.33) Status: Active Hyperparathyroidism (252.00, E21.3) Status: Active Edema (782.3, R60.9) Status: Active Hypokalemia (276.8, E87.6) Status: Active Type 2 diabetes mellitus (250.00, E11.9) Status: Active Dyslipidemia (272.4, E78.5) Status: Active Chronic kidney disease, stage III (moderate) (585.3, N18.3) Status: Active Behavior problems (V40.9) Status: Active Depression (311, F32.9) Status: Active Dementia of the Alzheimer's type (331.0, G30.9) Status: Active Peripheral arterial disease (443.9, I73.9) Status: Active Sick sinus syndrome (427.81, I49.5) Status: Active Hypertension (401.9, I10) Status: Active CKD (chronic kidney disease), stage III (585.3, N18.3) Status: Active Generalized edema (782.3, R60.1) Status: Active Essential hypertension (401.9, I10) Status: Active Medications Name Dates Details Lantus SoloStar 100 UNIT/ML Subcutaneous Solution Pen-injector INJECT 8 UNITS UNDER THE SKIN AT BEDTIME OR DIRECTED FOR DIABETES (NEW DOSING 04-15-15) Quantity: 1 Mary Tilley M.D.* Started 18-Jan-2008 ActiveKlor-Con M20 20 MEQ Oral Tablet Extended Release Take 1 tablet twice a day * Quantity: 180 Refills: 2 Mary Tilley M.D.* Started 16-Oct-2009 ActiveTorsemide 20 MG Oral Tablet take 2 tablets in the AM * Refills: 3 Mary Tilely M.D.* Started 30-Oct-2009 Flxord72 Tablet Bottle Simvastatin 40 MG Oral Tablet Take 1 tablet at bedtime * Quantity: 90 Refills: 3 Mary Tilley M.D.* Started 27-May-2009 ActiveGabapentin 300 MG Oral Capsule TAKE 1 CAPSULE EVERY NIGHT AT BEDTIME * Quantity: 90 Refills: 2 Mary Tilley M.D.* Started 03-Dec-2009 ActiveReclast 5 MG/100ML Intravenous Solution Infuse 5mg/1000ml yearlyDx: Osteoporosis 733 * Quantity: 100 Refills: 5 Mary Tilley M.D.* Started 10-Nov-2011 ActiveRisperiDONE 1 MG Oral Tablet TAKE 1 TABLET AT BEDTIME. * Quantity: 90 Refills: 3 Mary Tilley M.D.* Started 13-Nov-2014 ActiveEscitalopram Oxalate 10 MG Oral Tablet Take 1 tablet daily * Quantity: 90 Refills: 3 TilleyMary M.D.* Started 25-Sep-2014 ActiveFish Oil 1000 MG Oral Capsule TAKE 1 CAPSULE DAILY. * Refills: 0 TilleyMary harmon M.D.* Started 23-Oct-2011 ActiveVitamin D3 2000 UNIT Oral Capsule TAKE 1 CAPSULE BY MOUTH DAILY * Quantity: 90 Refills: 3 * Started 09-Sep-2010 ActiveExelon 13.3 MG/24HR Transdermal Patch [address] 1 PATCH EXTERNALLY DAILY * Quantity: 3 Refills: 2 TilleyMary M.D.* Started 13-May-2009 ActiveAdult Aspirin EC Low Strength 81 MG Oral Tablet Delayed Release TAKE 1 TABLET DAILY. * Refills: 0 ActiveClopidogrel Bisulfate 75 MG Oral Tablet Take 1 tablet daily * Quantity: 90 Refills: 3 TilleyMary M.D.* Started 18-Jan-2008 Active Allergies and Adverse Reactions Name Dates [...] Intramuscular Injectable Administered on:08-Jul-2010 Influenza Lot #: [id number] Administered on:05-Jun-2011 Zoster (Zostavax) Administered on:12-Sep-2012 Influenza Lot #: [id number] Administered on:27-Jun-2013 Prevnar 13 Intramuscular Suspension Lot #: [id number] Administered on:27-Dec-2014 Family History Unknown Family Member* [...] not documented Goal Planned Encounters* Appointment; Provider: Brayan Aragon On 17-Apr-2010 13:00 [...] Problem not documented On 15-Apr-2015 13:00 Appointment; Lexis Diazrick Encounter Diagnosis: Problem not documented On 02-Apr-2015 14:30 Appointment; Fluck Avinash Encounter Diagnosis: Problem not documented On [...]
--- OUTSIDE RECORDS SUMMARY | 2017-09-09 18:18 | XMS REPORT | Summary of Care ---
Author Author Avinash Diaz M.D. Unknown Address [address], [place] [id number] Phone Unavailable Care Team Providers Care Gymnasium Teacher Name Role Phone Mary Tilley M.D. Unavailable [...] 1 Refills: 5 TilleyMary M.D.* Started 10-Nov-2011 [id number] ML Plas Cont Potassium Chloride Krista ER [...] Intramuscular Injectable Administered on:08-Jul-2010 Influenza Lot #: [id number] Administered on:05-Jun-2011 Zoster (Zostavax) Administered on:12-Sep-2012 Influenza Lot #: [id number] Administered on:27-Jun-2013 Family History Unknown Family Member* [...] ml/min (Better) Range: >60 EST GFR, NON-AFR DOMINICAN 51 ml/min (Below low threshold) Range: >60 Comments: EST GFR is reported in ml/min per 1.73 m2 of body surface area. For -Northern Irish, please multiple result by 1.2.----- BUN:CREATININE RATIO [...] bacteria. (SUGGESTIVE OF CONTAMINATION)----- 16:54 Immunofixation, Serum [id number] Comments: TESTING PERFORMED AT: [DA] [facility], [address], PHONE: , MEMORIAL ADVISER: EDYTA CHAIREZ MD IMMUNOFIXATION RESULT, SERUM COMMENT (Better) Comments: AN APPARENT NORMAL IMMUNOFIXATION PATTERN.----- IMMUNOGLOBULIN G, QN, SERUM 632 MG/DL (Below low threshold) Range: 700- 1600 IMMUNOGLOBULIN A, QN, SERUM 133 MG/DL (Better) Range: 91-414 IMMUNOGLOBULIN M, QN, SERUM 34 MG/DL (Below low threshold) Range: 40-230 16:54 Protein Elec + Interp, Serum [id number] Comments: TESTING PERFORMED AT : [[facility], [address] [place] [address], [place], [address], PHONE: [phone], MEMORIAL ADVISER: EDYTA CHAIREZ MD PROTEIN, TOTAL, SERUM 5.4 G/DL (Below low threshold) Range: 6.0-8.5 ALBUMIN 3.1 G/DL (Below low threshold) Range: 3.2-5.6 BHMTB-1-SRKPCJGT 0.3 G/DL (Better) Range: 0.1-0.4 RXOHC-6-DKLMHQIV 0.7 G/DL (Better) Range: 0.4-1.2 BETA GLOBULIN 0.8 G/DL (Better) Range: 0.6-1.3 GAMMA GLOBULIN 0.6 G/DL (Better) Range: 0.5-1.6 M-SPIKE NOT OBSERVED G/DL (Better) Range: NOT OBSERVED GLOBULIN, TOTAL 2.3 G/DL (Better) Range: 2.0-4.5 A/G RATIO 1.3 (Better) Range: 0.7-2.0 PLEASE NOTE: COMMENT (Better) Comments: PROTEIN ELECTROPHORESIS SCAN WILL FOLLOW VIA COMPUTER,MAIL, OR SOCIAL WORK MSW DELIVERY.----- P E INTERPRETATION, S COMMENT (Better) Comments: THE SPE PATTERN REFLECTS HYPOALBUMINEMIA. EVIDENCE OFMONOCLONAL PROTEIN IS NOT APPARENT.----- 16:54 Immunofixation, Urine [id number] Comments: TESTING PERFORMED AT: [DA] [facility], [address] [place] [address], [place], [address], PHONE: , MEMORIAL ADVISER: EDYTA CHAIREZ MD GISEL INTERPRETATION:U COMMENT (Better) [...] VILLAR AB 3 AU/mL (Better) Range: 0-120 DIRECTOR DATA MANAGEMENT AB 10 AU/mL (Better) Range: 0-120 ANTI [...] Negative-Trace EPITH 0-2 /HPF (Better) Range: 0-10 Plan of Care Planned Observations* Name Dates [...]
--- OUTSIDE RECORDS SUMMARY | 2017-09-09 18:18 | XMS REPORT | Summary of Care ---
Author Author Mary Tilley M.D. Unknown Address [address], [place] [id number] Phone Unavailable Care Team Providers Care Latex Spooler Name Role Phone Mary Tilley M.D. Unavailable [...] Refills: 3 Mary Tilley M.D.* Started 30-Oct-2009 [id number] Tablet Bottle Adult Aspirin EC Low Strength [...] Intramuscular Injectable Administered on:08-Jul-2010 Influenza Lot #: [id number] Administered on:05-Jun-2011 Zoster (Zostavax) Administered on:12-Sep-2012 Influenza Lot #: [id number] Administered on:27-Jun-2013 Prevnar 13 Intramuscular Suspension Lot #: [id number] Administered on:27-Dec-2014 Family History Unknown Family Member* [...] low threshold) Range: >60 EST GFR, NON-AFR LITHUANIAN 46 ml/min (Below low threshold) Range: >60 Comments: EST GFR is reported in ml/min per 1.73 m2 of body surface area. For -Armenian, please multiple result by 1.2.----- BUN:CREATININE RATIO [...] Problem not documented On 28-Sep-2014 14:15 Appointment; Mayr Tilley Encounter Diagnosis: Problem not [...] Problem not documented On 01-Dec-2013 11:00 Appointment; rBodie Melendez Encounter Diagnosis: Problem not documented On 28-Aug-2013 15:45 Appointment; Johnna Watters Encounter Diagnosis: Problem not documented On 04-Aug-2013 15:00 Appointment; Mary Tilley Encounter Diagnosis: Problem not documented On 27-Jun-2013 14:15 Appointment; Johnna Watters Encounter Diagnosis: Problem not documented On 22-May-2013 14:00
--- OUTSIDE RECORDS SUMMARY | 2017-09-09 18:19 | XMS REPORT ---
Author Author GENERATED, SYSTEM Organization Unknown Address Unknown Phone Unavailable Care Team Providers Care Environmental Property Assessor Name Role Phone MD KRISS, MC PP Reason For Visit Reason for Visit from 02/01/2015 2:12 PM:* Pt Stated Reason for Adm : Reclast Chief Complaint OSTEOPROSIS Social History Functional Status Functional Status from 02/01/2015 2:12 PM:* LOC : Alert * Oriented To : Person,Place,Time Vital Signs Hospital Vital Signs from 02/01/2015 2:33 PM:* Height : 5/6 ft,in * Temperature : 97.6 F * Pulse : 63 * Respirations : 18 * BP : 114/64 Results Problems Encounter Diagnosis No relevant problems exist. Encounters Encounter Diagnosis No relevant problems exist. Plan of Care Procedures * Completed Procedure Code: 99.29 Procedure Name: not valued, on 01/19/2014 12: 00 AM * Completed , on 01/14/2009 12:00 AM Immunizations No immunizations administered or ordered. Hospital Course Hospital Discharge Instructions Allergies, Adverse Reactions, Alerts * Neosporin ([id number]) causes Unknown. * Benadryl causes unspecified. * No Latex Allergy. * No IV Contrast Allergy. Medication Medication reconciliation has not been performed.
--- OUTSIDE RECORDS SUMMARY | 2017-09-09 18:19 | XMS REPORT | Continuity of Care Document ---
Author Author [facility] Organization [facility] Address Unknown Phone Unavailable Allergies Active Description Code Type Severity Reaction Onset Reported/Identified Relationship to Patient Clinical Status Yes asa,neosporin,antihistamines 05/30/2003 Drug Allergy N/A N/A Yes bacitracin [id number] Drug Allergy Unknown N/A 06/05/2016 Yes codeine [id number] Drug Allergy Unknown N/A 06/05/2016 Yes diphenhydramine [id number] Drug Allergy Unknown N/A 06/05/2016 Yes neomycin [id number] Drug Allergy Unknown N/A 06/05/2016 Yes NSAIDS (Non-Steroidal Anti-Inflamma [id number] Drug Allergy Unknown N/A 02/2016 Yes polymyxin B [id number] Drug Allergy Unknown N/A 06/05/2016 Medications There is no data. Problems Date Dx Coded Attending Type Code Diagnosis Diagnosed By 12/03/2015 Ot R82.90 12/31/2015 Ot R82.90 UNSPECIFIED ABNORMAL FINDINGS IN URINE 01/02/2016 LIV CASAREZ DO Ot F03.90 UNSPECIFIED DEMENTIA WITHOUT BEHAVIORAL 01/02/2016 LIV CASAREZ DO Ot N39.0 URINARY TRACT INFECTION, SITE NOT SPECIF 01/02/2016 LIV CASAREZ DO Ot R29.6 REPEATED FALLS 01/02/2016 LIV CASAREZ DO Ot S00.93XA CONTUSION OF UNSPECIFIED PART OF HEAD, I 01/02/2016 LIV CASAREZ DO Ot W01.0XXA FALL SAME LEV FROM SLIP/TRIP W/O STRIKE 01/02/2016 LIV CASAREZ DO Ot Y92.[address] IN LONG TERM PLACE 01/02/2016 LIV CASAREZ DO Ot Y99.8 OTHER EXTERNAL CAUSE STATUS 01/02/2016 Ot R82.90 UNSPECIFIED ABNORMAL FINDINGS IN URINE 01/02/2016 Ot R82.90 UNSPECIFIED ABNORMAL FINDINGS IN URINE 01/03/2016 LIV ACSAREZ DO Ot F03.90 UNSPECIFIED DEMENTIA WITHOUT BEHAVIORAL 01/03/2016 LIV CASAREZ DO Ot N39.0 URINARY TRACT INFECTION, SITE NOT SPECIF 01/03/2016 LIV CASAREZ DO Ot R29.6 REPEATED FALLS 01/03/2016 LIV CASAREZ DO Ot S00.93XA CONTUSION OF UNSPECIFIED PART OF HEAD, I 01/03/2016 LIV CASAREZ DO Ot W01.0XXA FALL SAME LEV FROM SLIP/TRIP W/O STRIKE 01/03/2016 LIV CASAREZ DO Ot Y92.[address] IN LONG TERM PLACE 01/03/2016 LIV CASAREZ DO Ot Y99.8 OTHER EXTERNAL CAUSE STATUS 01/03/2016 Ot R82.90 UNSPECIFIED ABNORMAL FINDINGS IN URINE 01/06/2016 Ot R82.90 UNSPECIFIED ABNORMAL FINDINGS IN URINE 04/14/2016 DIOGENES KELLY MD Ot R35.0 FREQUENCY OF MICTURITION 04/14/2016 DIOGENES KELLY MD Ot R35.0 FREQUENCY OF MICTURITION 04/15/2016 DIOGENES KELLY MD Ot M54.9 DORSALGIA, UNSPECIFIED 04/15/2016 DIOGENES KELLY MD Ot R35.0 FREQUENCY OF MICTURITION 04/15/2016 DIOGENES KELLY MD Ot R45.1 RESTLESSNESS AND AGITATION 04/15/2016 DIOGENES KELLY MD Ot R82.99 OTHER ABNORMAL FINDINGS IN URINE 05/08/2016 DIOGENES KELLY MD Ot M54.9 DORSALGIA, UNSPECIFIED 05/08/2016 DIOGENES KELLY MD Ot R35.0 FREQUENCY OF MICTURITION 05/08/2016 DIOGENES KELLY MD Ot R45.1 RESTLESSNESS AND AGITATION 05/08/2016 DIOGENES KELLY MD Ot R82.99 OTHER ABNORMAL FINDINGS IN URINE 05/13/2016 Ot R82.90 UNSPECIFIED ABNORMAL FINDINGS IN URINE 05/13/2016 DIOGENES KELLY MD Ot M54.9 DORSALGIA, UNSPECIFIED 05/13/2016 DIOGENES KLELY MD Ot R35.0 FREQUENCY OF MICTURITION 05/13/2016 DIOGENES KELLY MD Ot R45.1 RESTLESSNESS AND AGITATION 05/13/2016 DIOGENES KELLY MD Ot R82.99 OTHER ABNORMAL FINDINGS IN URINE 05/14/2016 SUDHIR MARTINEZ MD Ot E11.9 TYPE 2 DIABETES MELLITUS WITHOUT COMPLIC 05/14/2016 SUDHIR MARTINEZ MD Ot E78.5 HYPERLIPIDEMIA, UNSPECIFIED 05/14/2016 SUDHIR MARTINEZ MD Ot G30.9 ALZHEIMER'S DISEASE, UNSPECIFIED 05/14/2016 SUDHIR MARTINEZ MD Ot I73.9 PERIPHERAL VASCULAR DISEASE, UNSPECIFIED 05/14/2016 SUDHIR MARTINEZ MD Ot R60.9 EDEMA, UNSPECIFIED 05/14/2016 SUDHIR MARTINEZ MD Ot Z95.0 PRESENCE OF CARDIAC PACEMAKER 05/21/2016 DIOGENES KELLY MD Ot M54.9 DORSALGIA, UNSPECIFIED 05/21/2016 DIOGENES KELLY MD Ot R35.0 FREQUENCY OF MICTURITION 05/21/2016 DIOGENES KELLY MD Ot R45.1 RESTLESSNESS AND AGITATION 05/21/2016 DIOGENES KELLY MD Ot R82.99 OTHER ABNORMAL FINDINGS IN URINE 06/01/2016 SUDHIR MARTINEZ MD Ot I50.9 HEART FAILURE, UNSPECIFIED 06/02/2016 Ot R82.90 UNSPECIFIED ABNORMAL FINDINGS IN URINE 06/02/2016 DIOGENES KELLY MD Ot M54.9 DORSALGIA, UNSPECIFIED 06/02/2016 DIOGENES KELLY MD Ot R35.0 FREQUENCY OF MICTURITION 06/02/2016 DIOGENES KELLY MD Ot R45.1 RESTLESSNESS AND AGITATION 06/02/2016 DIOGENES KELLY MD Ot R82.99 OTHER ABNORMAL FINDINGS IN URINE 06/02/2016 SUDHIR MARTINEZ MD Ot E11.9 TYPE 2 DIABETES MELLITUS WITHOUT COMPLIC 06/02/2016 SUDHIR MARTINEZ MD Ot E78.5 HYPERLIPIDEMIA, UNSPECIFIED 06/02/2016 SUDHIR MARTINEZ MD Ot G30.9 ALZHEIMER'S DISEASE, UNSPECIFIED 06/02/2016 SUDHIR MARTINEZ MD Ot I73.9 PERIPHERAL VASCULAR DISEASE, UNSPECIFIED 06/02/2016 SUDHIR MARTINEZ MD Ot R60.9 EDEMA, UNSPECIFIED 06/02/2016 SUDHIR MARTINEZ MD Ot Z95.0 PRESENCE OF CARDIAC PACEMAKER 06/02/2016 SUDHIR MARTINEZ MD Ot I50.9 HEART FAILURE, UNSPECIFIED 06/02/2016 DIOGENES KELLY MD Ot M54.9 DORSALGIA, UNSPECIFIED 06/02/2016 DIOGENES KELLY MD Ot R35.0 FREQUENCY OF MICTURITION 06/02/2016 DIOGENES KELLY MD Ot R45.1 RESTLESSNESS AND AGITATION 06/02/2016 DIOGENES KELLY MD Ot R82.99 OTHER ABNORMAL FINDINGS IN URINE 06/02/2016 SUDHIR MARTINEZ MD Ot I50.9 HEART FAILURE, UNSPECIFIED 06/02/2016 Ot R82.90 UNSPECIFIED ABNORMAL FINDINGS IN URINE 06/02/2016 DIOGENES KELLY MD Ot M54.9 DORSALGIA, UNSPECIFIED 06/02/2016 DIOGENES KELLY MD Ot R35.0 FREQUENCY OF MICTURITION 06/02/2016 DIOGENES KELLY MD Ot R45.1 RESTLESSNESS AND AGITATION 06/02/2016 DIOGENES KELLY MD Ot R82.99 OTHER ABNORMAL FINDINGS IN URINE 06/02/2016 SUDHIR MARTINEZ MD Ot E11.9 TYPE 2 DIABETES MELLITUS WITHOUT COMPLIC 06/02/2016 SUDHIR MARTINEZ MD Ot E78.5 HYPERLIPIDEMIA, UNSPECIFIED 06/02/2016 SUDHIR MARTINEZ MD Ot G30.9 ALZHEIMER'S DISEASE, UNSPECIFIED 06/02/2016 SUDHIR MARTINEZ MD Ot I73.9 PERIPHERAL VASCULAR DISEASE, UNSPECIFIED 06/02/2016 SUDHIR MARTINEZ MD Ot R60.9 EDEMA, UNSPECIFIED 06/02/2016 SUDHIR MARTINEZ MD Ot Z95.0 PRESENCE OF CARDIAC PACEMAKER 06/02/2016 SUDHIR MARTINEZ MD Ot I50.9 HEART FAILURE, UNSPECIFIED 06/02/2016 SUDHIR MARTINEZ MD Ot I50.9 HEART FAILURE, UNSPECIFIED 06/05/2016 SUDHIR MARTINEZ MD Ot E11.9 TYPE 2 DIABETES MELLITUS WITHOUT COMPLIC 06/05/2016 SUDHIR MARTINEZ MD Ot E78.5 HYPERLIPIDEMIA, UNSPECIFIED 06/05/2016 SUDHIR MARTINEZ MD Ot G30.9 ALZHEIMER'S DISEASE, UNSPECIFIED 06/05/2016 SUDHIR MARTINEZ MD Ot I73.9 PERIPHERAL VASCULAR DISEASE, UNSPECIFIED 06/05/2016 SUDHIR MARTINEZ MD Ot R60.9 EDEMA, UNSPECIFIED 06/05/2016 SUDHIR MARTINEZ MD Ot Z95.0 PRESENCE OF CARDIAC PACEMAKER 06/09/2016 ARNAUD ESPANA MD, Ot E11.51 TYPE 2 DIABETES W DIABETIC PERIPHERAL AN 06/09/2016 ARNAUD ESPANA MD, Ot E11.65 TYPE 2 DIABETES MELLITUS WITH HYPERGLYCE 06/09/2016 ARNAUD ESPANA MD, Ot E87.0 HYPEROSMOLALITY AND HYPERNATREMIA 06/09/2016 ARNAUD ESPANA MD, Ot F03.90 UNSPECIFIED DEMENTIA WITHOUT BEHAVIORAL 06/09/2016 ARNAUD ESPANA MD, Ot F32.9 MAJOR DEPRESSIVE DISORDER, SINGLE EPISOD 06/09/2016 ARNAUD ESPANA MD, Ot F41.9 ANXIETY DISORDER, UNSPECIFIED 06/09/2016 ARNAUD ESPANA MD, Ot F60.9 PERSONALITY DISORDER, UNSPECIFIED 06/09/2016 ARNAUD ESPANA MD, Ot I13.0 HYP HRT CHR KDNY DIS W HRT FAIL AND ST 06/09/2016 ARNAUD ESPANA MD, Ot I50.20 UNSPECIFIED SYSTOLIC (CONGESTIVE) HEART 06/09/2016 ARNAUD ESPANA MD, Ot I50.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 06/09/2016 ARNAUD ESPANA MD, Ot K59.00 CONSTIPATION, UNSPECIFIED 06/09/2016 ARNAUD ESPANA MD, Ot N17.9 ACUTE KIDNEY FAILURE, UNSPECIFIED 06/09/2016 ARNAUD ESPANA MD, Ot N18.9 CHRONIC KIDNEY DISEASE, UNSPECIFIED 06/09/2016 ARNAUD ESPANA MD, Ot N28.9 DISORDER OF KIDNEY AND URETER, UNSPECIFI 06/09/2016 ARNAUD ESPANA MD, Ot R13.10 DYSPHAGIA, UNSPECIFIED 06/09/2016 ARNAUD ESPANA MD, Ot R63.0 ANOREXIA 06/09/2016 ARNAUD ESPANA MD, Ot Z66 DO NOT RESUSCITATE 06/09/2016 ARNAUD ESPANA MD, Ot Z79.4 PRISON (CURRENT) USE OF INSULIN 06/09/2016 ARNAUD ESPANA MD, Ot Z79.84 ROTARY DRIER (CURRENT) USE OF ORAL HYPOGLYC 06/09/2016 ARNAUD ESPANA MD, Ot Z87.891 PERSONAL HISTORY OF NICOTINE DEPENDENCE 06/09/2016 ARNAUD ESPANA MD, Ot Z95.0 PRESENCE OF CARDIAC PACEMAKER 06/11/2016 SUDHIR MARTINEZ MD Ot E11.9 TYPE 2 DIABETES MELLITUS WITHOUT COMPLIC 06/11/2016 SUDHIR MARTINEZ MD Ot E78.5 HYPERLIPIDEMIA, UNSPECIFIED 06/11/2016 SUDHIR MARTINEZ MD Ot G30.9 ALZHEIMER'S DISEASE, UNSPECIFIED 06/11/2016 SUDHIR MARTINEZ MD Ot I73.9 PERIPHERAL VASCULAR DISEASE, UNSPECIFIED 06/11/2016 SUDHIR MARTINEZ MD Ot R60.9 EDEMA, UNSPECIFIED 06/11/2016 SUDHIR MARTINEZ MD Ot Z95.0 PRESENCE OF CARDIAC PACEMAKER 06/24/2016 SUDHIR MARTINEZ MD Ot I50.9 HEART FAILURE, UNSPECIFIED 06/29/2016 SUDHIR MARTINEZ MD Ot E11.9 TYPE 2 DIABETES MELLITUS WITHOUT COMPLIC 06/29/2016 SUDHIR MARTINEZ MD Ot E78.5 HYPERLIPIDEMIA, UNSPECIFIED 06/29/2016 SUDHIR MARTINEZ MD Ot G30.9 ALZHEIMER'S DISEASE, UNSPECIFIED 06/29/2016 SUDHIR MARTINEZ MD Ot I73.9 PERIPHERAL VASCULAR DISEASE, UNSPECIFIED 06/29/2016 SUDHIR MARTINEZ MD Ot R60.9 EDEMA, UNSPECIFIED 06/29/2016 SUDHIR MARTINEZ MD Ot Z95.0 PRESENCE OF CARDIAC PACEMAKER 06/30/2016 SUDHIR MARTINEZ MD Ot E11.9 TYPE 2 DIABETES MELLITUS WITHOUT COMPLIC 06/30/2016 SUDHIR MARTINEZ MD Ot E78.5 HYPERLIPIDEMIA, UNSPECIFIED 06/30/2016 SUDHIR MARTINEZ MD Ot G30.9 ALZHEIMER'S DISEASE, UNSPECIFIED 06/30/2016 SUDHIR MARTINEZ MD Ot I73.9 PERIPHERAL VASCULAR DISEASE, UNSPECIFIED 06/30/2016 SUDHIR MARTINEZ MD Ot R60.9 EDEMA, UNSPECIFIED 06/30/2016 SUDHIR MARTINEZ MD Ot Z95.0 PRESENCE OF CARDIAC PACEMAKER 07/08/2016 SUDHIR MARTINEZ MD Ot I50.9 HEART FAILURE, UNSPECIFIED 07/16/2016 Ot R82.90 UNSPECIFIED ABNORMAL FINDINGS IN URINE 07/16/2016 DIOGENES KELLY MD Ot M54.9 DORSALGIA, UNSPECIFIED 07/16/2016 DIOGENES KELLY MD Ot R35.0 FREQUENCY OF MICTURITION 07/16/2016 DIOGENES KELLY MD Ot R45.1 RESTLESSNESS AND AGITATION 07/16/2016 DIOGENES KELLY MD Ot R82.99 OTHER ABNORMAL FINDINGS IN URINE 07/16/2016 SUDHIR MARTINEZ MD Ot E11.9 TYPE 2 DIABETES MELLITUS WITHOUT COMPLIC 07/16/2016 SUDHIR MARTINEZ MD Ot E78.5 HYPERLIPIDEMIA, UNSPECIFIED 07/16/2016 SUDHIR MARTINEZ MD Ot G30.9 ALZHEIMER'S DISEASE, UNSPECIFIED 07/16/2016 SUDHIR MARTINEZ MD Ot I73.9 PERIPHERAL VASCULAR DISEASE, UNSPECIFIED 07/16/2016 SUDHIR MARTINEZ MD Ot R60.9 EDEMA, UNSPECIFIED 07/16/2016 SUDHIR MARTINEZ MD Ot Z95.0 PRESENCE OF CARDIAC PACEMAKER 07/16/2016 SUDHIR MARTINEZ MD Ot I50.9 HEART FAILURE, UNSPECIFIED 07/16/2016 SUDHIR MARTINEZ MD Ot I50.9 HEART FAILURE, UNSPECIFIED 08/05/2016 ARNAUD ESPANA MD Ot R35.0 FREQUENCY OF MICTURITION 08/27/2016 ARNAUD ESPANA MD Ot R35.0 FREQUENCY OF MICTURITION 09/02/2016 ARNAUD ESPANA MD Ot R35.0 FREQUENCY OF MICTURITION Procedures There is no data. Results Test Result Range Bacterial urine culture - 04/13/16 16:40 Bacterial urine culture [id number] NRG COLONY COUNT >100,000/ML NRG FTX;REPORTABLE SENSITIVITY REPORTED 04/15/16 13:45 NRG Bacterial susceptibility panel - 04/13/16 16:40 Gentamicin susceptibility test by minimum inhibitory concentration 2 NRG Trimethoprim/sulfamethoxazole susceptibility test by minimum inhibitoryconcentration <= NRG Ampicillin susceptibility test by minimum inhibitory concentration < = NRG Tobramycin susceptibility test by minimum inhibitory concentration 2 NRG Cefazolin susceptibility test by minimum inhibitory concentration < = NRG Ceftriaxone susceptibility test by minimum inhibitory concentration <= NRG Ampicillin/sulbactam susceptibility test by minimum inhibitory concentration <= NRG Ciprofloxacin susceptibility test by minimum inhibitory concentration >= NRG Meropenem susceptibility test by minimum inhibitory concentration < = NRG Nitrofurantoin susceptibility test by minimum inhibitory concentration R NRG Aztreonam susceptibility test by minimum inhibitory concentration < = NRG Whole blood basic metabolic panel - 10/07/16 20:47 Serum or plasma sodium measurement (moles/volume) 159 mmol/L 135-145 Serum or plasma potassium measurement (moles/volume) 4.5 mmol/L 3.6-5.0 Serum or plasma chloride measurement (moles/volume) 120 mmol/L 98-107 Carbon dioxide 28 mmol/L 21-32 Serum or plasma anion gap determination (moles/volume) 11 mmol/L 5-14 Serum or plasma urea nitrogen measurement (mass/volume) 67 mg/dL 7-18 Serum or plasma creatinine measurement (mass/volume) 1.92 mg/dL 0.60-1.30 Serum or plasma urea nitrogen/creatinine mass ratio 35 NRG Serum or plasma creatinine measurement with calculation of estimated glomerular filtration rate 25 NRG Serum or plasma glucose measurement (mass/volume) 165 mg/dL 70-105 Serum or plasma calcium measurement (mass/volume) 10.8 mg/dL 8.5-10.1 Capillary blood glucose measurement by glucometer (mass/volume) - 06/06/16 01: 39 Capillary blood glucose measurement by glucometer (mass/volume) 132 mg/dL 70-110 Complete blood count (CBC) with automated white blood cell (WBC) differential - 06/06/16 06:20 Blood leukocytes automated count (number/volume) 14.1 10*3/uL 4.3-11.0 Blood erythrocytes automated count (number/volume) 4.92 10*6/uL 4.35-5.85 Venous blood hemoglobin measurement (mass/volume) 15.1 g/dL 11.5-16.0 Blood hematocrit (volume fraction) 48 % 35-52 Automated erythrocyte mean corpuscular volume 97 [foz_us] 80-99 Automated erythrocyte mean corpuscular hemoglobin (mass per erythrocyte) 31 pg 25-34 Automated erythrocyte mean corpuscular hemoglobin concentration measurement ( mass/volume) 32 g/dL 32-36 Automated erythrocyte distribution width ratio 14.3 % 10.0-14.5 Automated blood platelet count (count/volume) 141 10*3/uL 130-400 Automated blood platelet mean volume measurement 11.9 [foz_us] 7.4-10.4 Automated blood neutrophils/100 leukocytes 76 % 42-75 Automated blood lymphocytes/100 leukocytes 14 % 12-44 Blood monocytes/100 leukocytes 9 % 0-12 Automated blood eosinophils/100 leukocytes 1 % 0-10 Automated blood basophils/100 leukocytes 0 % 0-10 Blood neutrophils automated count (number/volume) 10.7 10*3 1.8-7.8 Blood lymphocytes automated count (number/volume) 2.0 10*3 1.0-4.0 Blood monocytes automated count (number/volume) 1.2 10*3 0.0-1.0 Automated eosinophil count 0.1 10*3/uL 0.0-0.3 Automated blood basophil count (count/volume) 0.0 10*3/uL 0.0-0.1 Whole blood basic metabolic panel - 06/06/16 06:20 Serum or plasma sodium measurement (moles/volume) 155 mmol/L 135-145 Serum or plasma potassium measurement (moles/volume) 4.2 mmol/L 3.6-5.0 Serum or plasma chloride measurement (moles/volume) 121 mmol/L 98-107 Carbon dioxide 21 mmol/L 21-32 Serum or plasma anion gap determination (moles/volume) 13 mmol/L 5-14 Serum or plasma urea nitrogen measurement (mass/volume) 58 mg/dL 7-18 Serum or plasma creatinine measurement (mass/volume) 1.35 mg/dL 0.60-1.30 Serum or plasma urea nitrogen/creatinine mass ratio 43 NRG Serum or plasma creatinine measurement with calculation of estimated glomerular filtration rate 38 NRG Serum or plasma glucose measurement (mass/volume) 119 mg/dL 70-105 Serum or plasma calcium measurement (mass/volume) 10.1 mg/dL 8.5-10.1 Hemoglobin A1c - 06/06/16 06:20 Hemoglobin A1c 5.4 % 4.5-6.2 Capillary blood glucose measurement by glucometer (mass/volume) - 06/06/16 12: 43 Capillary blood glucose measurement by glucometer (mass/volume) 183 mg/dL 70-110 Whole blood basic metabolic panel - 06/06/16 14:32 Serum or plasma sodium measurement (moles/volume) 151 mmol/L 135-145 Serum or plasma potassium measurement (moles/volume) 3.6 mmol/L 3.6-5.0 Serum or plasma chloride measurement (moles/volume) 112 mmol/L 98-107 Carbon dioxide 26 mmol/L 21-32 Serum or plasma anion gap determination (moles/volume) 13 mmol/L 5-14 Serum or plasma urea nitrogen measurement (mass/volume) 45 mg/dL 7-18 Serum or plasma creatinine measurement (mass/volume) 1.23 mg/dL 0.60-1.30 Serum or plasma urea nitrogen/creatinine mass ratio 37 NRG Serum or plasma creatinine measurement with calculation of estimated glomerular filtration rate 42 NRG Serum or plasma glucose measurement (mass/volume) 126 mg/dL 70-105 Serum or plasma calcium measurement (mass/volume) 10.0 mg/dL 8.5-10.1 Capillary blood glucose measurement by glucometer (mass/volume) - 06/06/16 17: 21 Capillary blood glucose measurement by glucometer (mass/volume) 97 mg/dL 70-110 Whole blood basic metabolic panel - 06/06/16 20:29 Serum or plasma sodium measurement (moles/volume) 147 mmol/L 135-145 Serum or plasma potassium measurement (moles/volume) 3.3 mmol/L 3.6-5.0 Serum or plasma chloride measurement (moles/volume) 108 mmol/L 98-107 Carbon dioxide 25 mmol/L 21-32 Serum or plasma anion gap determination (moles/volume) 14 mmol/L 5-14 Serum or plasma urea nitrogen measurement (mass/volume) 41 mg/dL 7-18 Serum or plasma creatinine measurement (mass/volume) 1.11 mg/dL 0.60-1.30 Serum or plasma urea nitrogen/creatinine mass ratio 37 NRG Serum or plasma creatinine measurement with calculation of estimated glomerular filtration rate 47 NRG Serum or plasma glucose measurement (mass/volume) 121 mg/dL 70-105 Serum or plasma calcium measurement (mass/volume) 9.9 mg/dL 8.5-10.1 Capillary blood glucose measurement by glucometer (mass/volume) - 06/07/16 00: 34 Capillary blood glucose measurement by glucometer (mass/volume) 109 mg/dL 70-110 Capillary blood glucose measurement by glucometer (mass/volume) - 06/07/16 04: 47 Capillary blood glucose measurement by glucometer (mass/volume) 82 mg/dL 70-110 Whole blood basic metabolic panel - 06/07/16 05:00 Serum or plasma sodium measurement (moles/volume) 146 mmol/L 135-145 Serum or plasma potassium measurement (moles/volume) 4.2 mmol/L 3.6-5.0 Serum or plasma chloride measurement (moles/volume) 110 mmol/L 98-107 Carbon dioxide 23 mmol/L 21-32 Serum or plasma anion gap determination (moles/volume) 13 mmol/L 5-14 Serum or plasma urea nitrogen measurement (mass/volume) 33 mg/dL 7-18 Serum or plasma creatinine measurement (mass/volume) 1.11 mg/dL 0.60-1.30 Serum or plasma urea nitrogen/creatinine mass ratio 30 NRG Serum or plasma creatinine measurement with calculation of estimated glomerular filtration rate 47 NRG Serum or plasma glucose measurement (mass/volume) 95 mg/dL 70-105 Serum or plasma calcium measurement (mass/volume) 9.7 mg/dL 8.5-10.1 Capillary blood glucose measurement by glucometer (mass/volume) - 06/07/16 13: 06 Capillary blood glucose measurement by glucometer (mass/volume) 181 mg/dL 70-110 Capillary blood glucose measurement by glucometer (mass/volume) - 06/07/16 18: 12 Capillary blood glucose measurement by glucometer (mass/volume) 148 mg/dL 70-110 Capillary blood glucose measurement by glucometer (mass/volume) - 06/07/16 23: 12 Capillary blood glucose measurement by glucometer (mass/volume) 109 mg/dL 70-110 Whole blood basic metabolic panel - 06/08/16 08:49 Serum or plasma sodium measurement (moles/volume) 146 mmol/L 135-145 Serum or plasma potassium measurement (moles/volume) 4.6 mmol/L 3.6-5.0 Serum or plasma chloride measurement (moles/volume) 112 mmol/L 98-107 Carbon dioxide 24 mmol/L -32 Serum or plasma anion gap determination (moles/volume) 10 mmol/L 5-14 Serum or plasma urea nitrogen measurement (mass/volume) 21 mg/dL 7-18 Serum or plasma creatinine measurement (mass/volume) 0.95 mg/dL 0.60-1.30 Serum or plasma urea nitrogen/creatinine mass ratio 22 NRG Serum or plasma creatinine measurement with calculation of estimated glomerular filtration rate 57 NRG Serum or plasma glucose measurement (mass/volume) 68 mg/dL 70-105 Serum or plasma calcium measurement (mass/volume) 10.1 mg/dL 8.5-10.1 Capillary blood glucose measurement by glucometer (mass/volume) - 06/08/16 12: 20 Capillary blood glucose measurement by glucometer (mass/volume) 212 mg/dL 70-110 Capillary blood glucose measurement by glucometer (mass/volume) - 06/08/16 16: 38 Capillary blood glucose measurement by glucometer (mass/volume) 39 mg/dL 70-110 Capillary blood glucose measurement by glucometer (mass/volume) - 06/08/16 17: 30 Capillary blood glucose measurement by glucometer (mass/volume) 66 mg/dL 70-110 Capillary blood glucose measurement by glucometer (mass/volume) - 06/08/16 21: 53 Capillary blood glucose measurement by glucometer (mass/volume) 191 mg/dL 70-110 Capillary blood glucose measurement by glucometer (mass/volume) - 06/09/16 06: 40 Capillary blood glucose measurement by glucometer (mass/volume) 107 mg/dL 70-110 Whole blood basic metabolic panel - 06/09/16 06:56 Serum or plasma sodium measurement (moles/volume) 143 mmol/L 135-145 Serum or plasma potassium measurement (moles/volume) 4.8 mmol/L 3.6-5.0 Serum or plasma chloride measurement (moles/volume) 109 mmol/L 98-107 Carbon dioxide 22 mmol/L 21-32 Serum or plasma anion gap determination (moles/volume) 12 mmol/L 5-14 Serum or plasma urea nitrogen measurement (mass/volume) 21 mg/dL 7-18 Serum or plasma creatinine measurement (mass/volume) 1.00 mg/dL 0.60-1.30 Serum or plasma urea nitrogen/creatinine mass ratio 21 NRG Serum or plasma creatinine measurement with calculation of estimated glomerular filtration rate 53 NRG Serum or plasma glucose measurement (mass/volume) 117 mg/dL 70-105 Serum or plasma calcium measurement (mass/volume) 10.0 mg/dL 8.5-10.1 Complete urinalysis with reflex to culture - 08/04/16 22:00 Urine color determination YELLOW NRG Urine clarity determination SLIGHTLY CLOUDY NRG Urine pH measurement by test strip 7 5-9 Specific gravity of urine by test strip 1.015 1.016- 1.022 Urine protein assay by test strip, semi-quantitative NEGATIVE NEGATIVE Urine glucose detection by automated test strip NEGATIVE NEGATIVE Erythrocytes detection in urine sediment by light microscopy NEGATIVE NEGATIVE Urine ketones detection by automated test strip NEGATIVE NEGATIVE Urine nitrite detection by test strip NEGATIVE NEGATIVE Urine total bilirubin detection by test strip NEGATIVE NEGATIVE Urine urobilinogen measurement by automated test strip (mass/volume) NORMAL NORMAL Urine leukocyte esterase detection by dipstick NEGATIVE NEGATIVE Automated urine sediment erythrocyte count by microscopy (number/high power field) NONE NRG Automated urine sediment leukocyte count by microscopy (number/high power field ) RARE NRG Bacteria detection in urine sediment by light microscopy NEGATIVE NRG Squamous epithelial cells detection in urine sediment by light microscopy 5-10 NRG Crystals detection in urine sediment by light microscopy PRESENT NRG Casts detection in urine sediment by light microscopy NONE NRG Mucus detection in urine sediment by light microscopy NEGATIVE NRG Complete urinalysis with reflex to culture NO NRG Amorphous sediment detection in urine sediment by light microscopy LARGE SHENG URATES NRG Automated blood complete blood count (hemogram) panel - 09/08/17 08:17 Blood leukocytes automated count (number/volume) 8.6 10*3/uL 4.3-11.0 Blood erythrocytes automated count (number/volume) 4.92 10*6/uL 4.35-5.85 Venous blood hemoglobin measurement (mass/volume) 14.8 g/dL 11.5-16.0 Blood hematocrit (volume fraction) 44 % 35-52 Automated erythrocyte mean corpuscular volume 90 [foz_us] 80-99 Automated erythrocyte mean corpuscular hemoglobin (mass per erythrocyte) 30 pg 25-34 Automated erythrocyte mean corpuscular hemoglobin concentration measurement ( mass/volume) 34 g/dL 32-36 Automated erythrocyte distribution width ratio 14.5 % 10.0-14.5 Automated blood platelet count (count/volume) 182 10*3/uL 130-400 Automated blood platelet mean volume measurement 11.3 [foz_us] 7.4-10.4 PT panel in platelet poor plasma by coagulation assay - 09/08/17 08:17 Prothrombin time (PT) in platelet poor plasma by coagulation assay 14.2 s 12.2-14.7 INR in platelet poor plasma or blood by coagulation assay 1.1 0.8-1.4 Activated partial thromboplastin time (aPTT) in platelet poor plasma bycoagulation assay - 09/08/17 08:17 Activated partial thromboplastin time (aPTT) in platelet poor plasma bycoagulation assay 26 s 24-35 Comprehensive metabolic panel - 09/08/17 08:17 Serum or plasma sodium measurement (moles/volume) 145 mmol/L 135-145 Serum or plasma potassium measurement (moles/volume) 4.2 mmol/L 3.6-5.0 Serum or plasma chloride measurement (moles/volume) 107 mmol/L 98-107 Carbon dioxide 26 mmol/L 21-32 Serum or plasma anion gap determination (moles/volume) 12 mmol/L 5-14 Serum or plasma urea nitrogen measurement (mass/volume) 32 mg/dL 7-18 Serum or plasma creatinine measurement (mass/volume) 0.88 mg/dL 0.60-1.30 Serum or plasma urea nitrogen/creatinine mass ratio 36 NRG Serum or plasma creatinine measurement with calculation of estimated glomerular filtration rate > NRG Serum or plasma glucose measurement (mass/volume) 145 mg/dL 70-105 Serum or plasma calcium measurement (mass/volume) 9.7 mg/dL 8.5-10.1 Serum or plasma total bilirubin measurement (mass/volume) 0.8 mg/dL 0.1-1.0 Serum or plasma alkaline phosphatase measurement (enzymatic activity/volume) 70 U/L 40-136 Serum or plasma aspartate aminotransferase measurement (enzymatic activity/ volume) 20 U/L 5-34 Serum or plasma alanine aminotransferase measurement (enzymatic activity/volume ) 27 U/L 0-55 Serum or plasma protein measurement (mass/volume) 6.0 g/dL 6.4-8.2 Serum or plasma albumin measurement (mass/volume) 3.3 g/dL 3.2-4.5 Lipid 1996 panel - 09/08/17 08:17 Serum or plasma triglyceride measurement (mass/volume) 131 mg/dL <150 Serum or plasma cholesterol measurement (mass/volume) 193 mg/dL < 200 Serum or plasma cholesterol in HDL measurement (mass/volume) 31 mg/ dL 40-60 Cholesterol in LDL [mass/volume] in serum or plasma by direct assay 141 mg/dL 1-129 Serum or plasma cholesterol in VLDL measurement (mass/volume) 26 mg/ dL 5-40 Methicillin resistant Staphylococcus aureus (MRSA) screening culture - 08:17 Methicillin resistant Staphylococcus aureus (MRSA) screening culture NEG NRG Encounters ACCT No. Visit Date/Time Discharge Status Pt. Type Provider Facility Loc./Unit Complaint [id number] 03/30/2015 00:01:00 04/08/2015 16:20:21 DIS Outpatient SHALINI CODY [id number] 03/05/2015 13:45:00 03/30/2015 00:42:06 DIS Outpatient SHALINI CODY [id number] 09/08/2017 07:47:00 09/08/2017 10:43:00 DIS Outpatient SUDHIR MARTINEZ MD [facility] CATH GRAY,CHF,SSS [id number] 08/04/2016 22:00:00 08/04/2016 23:59:59 CLS Outpatient ARNAUD ESPANA MD [facility] MSL INCREASED AGITATION, INCREASED FREQUENCY [id number] 06/05/2016 16:10:00 06/09/2016 13:50:00 DIS Inpatient ARNAUD ESPANA MD [facility] 4TH LOW SODIUM [id number] 06/05/2016 15:45:00 06/05/2016 15:45:00 CAN Preadmit KELVIN LOPEZ MD [facility] ER IRREGULAR LAB WORK [id number] 06/01/2016 13:25:00 06/01/2016 23:59:59 CLS Outpatient SUDHIR MARTINEZ MD [facility] CARD CHF [id number] 05/13/2016 12:20:00 05/13/2016 23:59:59 CLS Outpatient SUDHIR MARTINEZ MD [facility] CARD PVD,DM,HLP,PERIPHERAL EDEMA [id number] 04/13/2016 17:01:00 04/13/2016 23:59:59 CLS Outpatient DIOGENES KELLY MD [facility] MSL INCREASED AGITATION, URINARY FREQUENCY,BACK PAIN [id number] 01/02/2016 16:58:00 01/02/2016 20:34:00 DIS Emergency HERMELINDO DO, LIV K [facility] ER FALL,WEAKNESS [id number] 11/29/2015 23:14:00 Document Registration
== END 2017-09-08 10:43 ==
LOC: CATH 07:47
PROVIDERS: ATTEND Internal Medicine Cardiovascular Disease
DX: I73.9 Peripheral vascular disease, unspecified (principal); I12.9 Hypertensive chronic kidney disease with stage 1 through stage 4 chronic kidney disease, or unspecified chronic kidney disease; Z95.0 Presence of cardiac pacemaker; G30.9 Alzheimer's disease, unspecified; F02.80 Dementia in other diseases classified elsewhere, unspecified severity, without behavioral disturbance, psychotic disturbance, mood disturbance, and anxiety; Z88.5 Allergy status to narcotic agent; Z88.6 Allergy status to analgesic agent; E11.9 Type 2 diabetes mellitus without complications; E78.5 Hyperlipidemia, unspecified; Z87.891 Personal history of nicotine dependence; I50.20 Unspecified systolic (congestive) heart failure; I65.23 Occlusion and stenosis of bilateral carotid arteries; N18.9 Chronic kidney disease, unspecified; Z53.9 Procedure and treatment not carried out, unspecified reason
CPT/HCPCS: 36415; 71045; 80053; 80061; 85027; 85610; 85730; 87081; 93005